=== PATIENT | female | born 1965 | race Caucasian/White ===

== ENCOUNTER 2016-07-26 07:20 | Emergency (ER) | payer OTHER ==
[2016-07-26 07:35] VITALS: BP 124/75
--- NOTE | 2016-07-26 08:26 | UC ---
Sourav Connor Janilya, scribed for Jeniffer West MD on 07/26/16 at 0806 . Skin Complaint HPI - HPI Summary HPI Summary: A 51 y/o female came in to [facility] presenting w/ a gradual onset of constant lump in the left nose for about 2 days. Pt states the pain and the pressure of the lump in the nose radiates to her left medial cheek, left forehead, and under her left eye. She reports the area is very tender to touch. Her condition has been progressively getting worse, and the severity is currently rated at 9/10. Cold/warm compresses did not bring any alleviation. Motrin relieved her Sx, but not significantly. Pt has never experienced these Sx before. Pt denies fever, chills, aches, n/v, CP, SOB, abd pain. No allergies to medicine. Pt is unaccompanied. - History of Current Complaint Chief Complaint: UCSkin Time Seen by Provider: 07/26/16 07:23 Stated Complaint: SORE IN NOSE Hx Obtained From: Patient Onset/Duration: Gradual Onset, Lasting Days, Still Present Skin Exposure Onset/Duration: Days Ago Timing: Constant Onset Severity: Moderate Current Severity: Moderate Pain Intensity: 9 Pain Scale Used: 0-10 Numeric Location: Face, Nose Aggravating: Nothing Alleviating: OTC Meds - mild relief from motrin Associated Signs & Symptoms: Negative: Nausea, Vomiting, Difficulty Breathing, Fever, Chills, Chest Pain, Abdominal Pain - Allergy/Home Medications Allergies/Adverse Reactions: Allergies Allergy/AdvReac Type Severity Reaction Status Date / Time Naproxen Allergy Intermediate Rash Verified 07/26/16 07:30 Review of Systems Constitutional: Negative Skin: Other - Tenderness of left side of face. Eyes: Negative ENT: Other - Lump in the left nose. Pain radiates to left side of face. Respiratory: Negative Cardiovascular: Negative Gastrointestinal: Negative Genitourinary: Negative Motor: Negative Neurovascular: Negative Musculoskeletal: Negative Neurological: Negative Psychological: Negative All Other Systems Reviewed And Are Negative: Yes PMH/Surg Hx/FS Hx/Imm Hx Previously Healthy: Yes Endocrine History Of: Denies: Diabetes Cardiovascular History Of: Denies: Hypertension, Pacemaker/ICD, Congestive Heart Failure Respiratory History Of: Reports: Asthma - No previous admissions GI/ History Of: Reports: Kidney Stones - WHEN 14YEARS OLD Denies: Renal Disease - Surgical History Surgical History: Yes Surgery Procedure, Year, and Place: TUBAL. RIGHT shoulder. Fatty tissue removedx2 - Family History Known Family History: Positive: Cardiac Disease - father, brother, mother - [place], Diabetes - Social History Alcohol Use: None Substance Use Type: None Smoking Status (MU): Former Smoker When Did the Patient Quit Smoking/Using Tobacco: 2003 - Immunization History Most Recent Influenza Vaccination: None Physical Exam Triage Information Reviewed: Yes Appearance: Well-Appearing Vital Signs: Initial Vital Signs Temp 98.1 F 07/26/16 07:31 Pulse 66 07/26/16 07:31 Resp 18 07/26/16 07:31 BP 124/75 07/26/16 07:31 Pulse Ox 96 07/26/16 07:31 Vital Signs Reviewed: Yes Eyes: Positive: Conjunctiva Inflamed ENT: Positive: Hearing grossly normal, Pharynx normal, TMs normal, Other: - Tender small pustule in left inferior nostril at orifice. No discharge.. Negative: Pharyngeal erythema, Nasal drainage, TM bulging, TM dull, TM red, Tonsillar exudate Dental Exam: Normal Neck: Positive: Supple, Nontender, No Lymphadenopathy Respiratory: Positive: Lungs clear, Normal breath sounds, No respiratory distress, No accessory muscle use Cardiovascular: Positive: RRR, No Murmur, Pulses Normal Abdomen Description: Positive: Nontender, Soft Musculoskeletal Exam: Normal Neurological Exam: Normal Psychological Exam: Normal Skin Exam: Normal Course/Dx - Differential Diagnoses - Skin Complaint Differential Diagnoses: Abscess, Cellulitis, Impetigo, MRSA - Diagnoses Provider Diagnoses: nasal folliculitis/abscess/cellulitis Discharge - Discharge Plan Condition: Stable Disposition: HOME Prescriptions: Mupirocin 2% OINT* [Bactroban 2 % Oint*] 1 applic TOPICAL TID #1 tube Sulfamethox/Trimethoprim DS* [Bactrim DS 800/160 TAB*] 1 tab PO BID #20 tab Patient Education Materials: Folliculitis (ED), Cellulitis (ED) Referrals: Adry Puri MD [Primary Care Provider] - 2 Days Additional Instructions: Take a probiotic while you are on the antibiotic. Continue with ibuprofen for the pain. Go to the ER if you symptoms worsen or not any better in 24-48 hrs. You may need IV antibiotics at that time. The documentation as recorded by the scribSourav mejias Janilya accurately reflects the service I personally performed and the decisions made by , Jeniffer West MD.
== END 2016-07-26 08:22 | disposition home or self-care (01) ==
LOC: UCEAST 07:20
DX: L73.8 Other specified follicular disorders (principal); J32.8 Other chronic sinusitis; J34.0 Abscess, furuncle and carbuncle of nose; J45.909 Unspecified asthma, uncomplicated; Z87.891 Personal history of nicotine dependence; Z88.6 Allergy status to analgesic agent
CPT/HCPCS: 99212; G0463

== ENCOUNTER 2016-07-27 13:49 | Emergency (ER) | payer OTHER ==
[2016-07-27 14:35] VITALS: BP 140/90
--- NOTE | 2016-07-27 14:36 | ED ---
Skin Complaint - HPI Summary HPI Summary: 51F presents with nasal lesion in left nares for 3 days. She states the pain has prevented her from sleeping. She states the pain radiates to her left cheek under her left eye and to her left ear. She denies any vesicular lesions or new lesions besides the one in her nose. She does not have a history of shingles. She denies anything coming from the lesions. She states the area is very tender to the touch. Warm compresses have been helping. She has been using topical mupirocin and bactrim and has taken them for two days. She has been taking ibuprofen without relief of her pain. - History of Current Complaint Chief Complaint: EDGeneral Time Seen by Provider: 07/27/16 14:02 Stated Complaint: FACIAL SWELLING,CELLULITUS Pain Intensity: 10 - Allergy/Home Medications Allergies/Adverse Reactions: Allergies Allergy/AdvReac Type Severity Reaction Status Date / Time Naproxen Allergy Intermediate Rash Verified 07/27/16 13:51 PMH/Surg Hx/FS Hx/Imm Hx Endocrine/Hematology History: Denies: Hx Diabetes, Hx Systemic Lupus Erythematosus Cardiovascular History: Denies: Hx Congestive Heart Failure, Hx Hypertension, Hx Pacemaker/ICD Respiratory History: Reports: Hx Asthma - No previous admissions, Hx Sleep Apnea GI History: Reports: Hx Gastroesophageal Reflux Disease - NEWLY History: Reports: Hx Kidney Stones - WHEN 14YEARS OLD Denies: Hx Dialysis, Hx Renal Disease Musculoskeletal History: Reports: Other Musculoskeletal History - POSSIBLE NECK PROBLEMS, GOUT Denies: Hx Rheumatoid Arthritis Sensory History: Reports: Hx Contacts or Glasses Denies: Hx Hearing Aid Opthamlomology History: Reports: Hx Contacts or Glasses Psychiatric History: Denies: Hx Panic Disorder - Cancer History Hx Chemotherapy: No - Surgical History Surgery Procedure, Year, and Place: TUBAL. RIGHT shoulder. Fatty tissue removedx2 Hx Anesthesia Reactions: No - Immunization History Date of Tetanus Vaccine: unknown Infectious Disease History: No Infectious Disease History: Denies: Traveled Outside the US in Last 30 Days - Family History Known Family History: Positive: Cardiac Disease - father, brother, mother - [place], Diabetes - Social History Alcohol Use: None Substance Use Type: Reports: None Hx Tobacco Use: Yes - quit 2002 Smoking Status (MU): Former Smoker Review of Systems Negative: Fever Positive: Other - lesion in left nares Negative: Chest Pain Negative: Shortness Of Breath All Other Systems Reviewed And Are Negative: Yes Physical Exam Triage Information Reviewed: Yes Vital Signs On Initial Exam: Initial Vitals Temp Pulse Resp BP Pulse Ox 97.5 F 77 18 150/75 99 07/27/16 13:51 07/27/16 13:51 07/27/16 13:51 07/27/16 13:51 07/27/16 13:51 Vital Signs Reviewed: Yes Appearance: Positive: Well-Appearing Skin: Positive: Warm, Dry Head/Face: Positive: Normal Head/Face Inspection Eyes: Positive: Normal, EOMI, AARON, Conjunctiva Clear, Other: - no erythema or edema around the eye ENT: Positive: Pharynx normal, TMs normal, Other - lesion present in left nares with no vesciular component or erythema, no palpable area of loculation felt, appears to be like folliculitis, tender to touch Neck: Positive: Supple, Nontender, No Lymphadenopathy Respiratory/Lung Sounds: Positive: Clear to Auscultation, Breath Sounds Present - Yadira Coma Scale Coma Scale Total: 15 Diagnostics - Vital Signs Vital Signs Temp Pulse Resp BP Pulse Ox 07/27/16 14:05 91 97 07/27/16 14:04 137/94 07/27/16 13:51 97.5 F 77 18 150/75 99 - Laboratory Lab Statement: Any lab studies that have been ordered have been reviewed, and results considered in the medical decision making process. Course/Dx - Course Course Of Treatment: 51F presents with lesion in left nares for 3 days, states feels like pimple in nose that wont pop, warm compresses make it better, has been using bactrim and mupirocin, states area has not gotten bigger but unable to deal with pain, no vescicular lesions noted, no evidence of preseptal cellulitis, lesions appears to be like a folliculitis, discussed do not see need for imaging but do not see any edema around area, discussed do not need iv antibiotics as does not appear infectious, told to continue antibiotics on currently, added on pain medication, told warning signs to return, patient understands and agrees with plan - Differential Diagnoses - Skin Complaint Differential Diagnoses: Abscess, Cellulitis, Other - folliculitis, shingles - Diagnoses Provider Diagnoses: Nasal lesion Discharge - Discharge Plan Condition: Good Disposition: HOME Prescriptions: traMADol TAB* [Ultram*] 50 mg PO Q8H PRN #12 tab MDD 3 PRN Reason: Pain Referrals: Adry Puri MD [Primary Care Provider] - Additional Instructions: Follow instructions of antibiotics given at Continue warm compresses on area Use ibuprofen every 6 hours, take narcotic every 8 hours as needed for pain Follow up with primary care physician if no improvement Return to ED if develop vesicular lesions, swelling around the eye, pain with eye movement, fever, or any new or worsening symptoms
== END 2016-07-27 14:44 | disposition home or self-care (01) ==
LOC: ED 13:49
DX: J34.89 Other specified disorders of nose and nasal sinuses (principal); Z87.891 Personal history of nicotine dependence
CPT/HCPCS: 99282

== ENCOUNTER 2016-07-28 00:06 | Emergency (ER) | payer OTHER ==
[2016-07-28 00:13] VITALS: BP 137/72
[2016-07-28] MEDS ORDERED: Ibuprofen TAB* 800 MG PO ONE (00:35)
--- NOTE | 2016-07-28 00:46 | ED ---
Briseida Connor Anna, scribed for Robert Parks MD on 07/28/16 at 0039 . Throat Pain/Nasal Congestion - HPI Summary HPI Summary: Patient is a 51 y/o female coming to [facility] presenting with constant left naris pain that began four days ago. The patient reports that she is unable to sleep because of the pain. She was seen in the ED a few hours ago and was prescribed Tramadol. She denies new symptoms. At 1999 last night, she took the Tramadol. She took Motrin at 1200 yesterday. - History of Current Complaint Chief Complaint: EDGeneral Time Seen by Provider: 07/28/16 00:30 Hx Obtained From: Patient Onset/Duration: Lasting Days, Still Present - Allergies/Home Medications Allergies/Adverse Reactions: Allergies Allergy/AdvReac Type Severity Reaction Status Date / Time Naproxen Allergy Intermediate Rash Verified 07/28/16 00:13 PMH/Surg Hx/FS Hx/Imm Hx Previously Healthy: Yes Endocrine/Hematology History: Denies: Hx Diabetes, Hx Systemic Lupus Erythematosus Cardiovascular History: Denies: Hx Congestive Heart Failure, Hx Hypertension, Hx Pacemaker/ICD Respiratory History: Reports: Hx Asthma - No previous admissions, Hx Sleep Apnea GI History: Reports: Hx Gastroesophageal Reflux Disease - NEWLY History: Reports: Hx Kidney Stones - WHEN 14YEARS OLD Denies: Hx Dialysis, Hx Renal Disease Musculoskeletal History: Reports: Other Musculoskeletal History - POSSIBLE NECK PROBLEMS, GOUT Denies: Hx Rheumatoid Arthritis Sensory History: Reports: Hx Contacts or Glasses Denies: Hx Hearing Aid Opthamlomology History: Reports: Hx Contacts or Glasses Psychiatric History: Denies: Hx Panic Disorder - Cancer History Hx Chemotherapy: No - Surgical History Surgery Procedure, Year, and Place: TUBAL. RIGHT shoulder. Fatty tissue removedx2 Hx Anesthesia Reactions: No - Immunization History Date of Tetanus Vaccine: unknown Infectious Disease History: No Infectious Disease History: Denies: Traveled Outside the US in Last 30 Days - Family History Known Family History: Positive: Cardiac Disease - father, brother, mother - [place], Diabetes - Social History Alcohol Use: None Substance Use Type: Reports: None Hx Tobacco Use: Yes - quit 2002 Smoking Status (MU): Former Smoker Review of Systems Constitutional: Negative ENT: Other - left naris pain All Other Systems Reviewed And Are Negative: Yes Physical Exam Triage Information Reviewed: Yes Vital Signs On Initial Exam: Initial Vitals Temp Pulse Resp BP Pulse Ox 98.1 F 69 16 137/72 97 07/28/16 00:09 07/28/16 00:09 07/28/16 00:09 07/28/16 00:09 07/28/16 00:09 Vital Signs Reviewed: Yes Appearance: Positive: Well-Appearing, No Pain Distress Skin: Positive: Warm Head/Face: Positive: Normal Head/Face Inspection Eyes: Positive: AARON ENT: Positive: Hearing grossly normal Neck: Positive: Supple Respiratory/Lung Sounds: Positive: Breath Sounds Present Neurological: Positive: Alert, Oriented to Person Place, Time Diagnostics - Vital Signs Vital Signs Temp Pulse Resp BP Pulse Ox 07/28/16 00:09 98.1 F 69 16 137/72 97 - Laboratory Lab Statement: Any lab studies that have been ordered have been reviewed, and results considered in the medical decision making process. Re-Evaluation - Re-Evaluation First Eval Comment: explained to pt needs to complete prior tx EENT Course/Dx - Course Assessment/Plan: Patient is a 51 y/o female coming to [facility] presenting with constant left nare pain that began four days ago. The patient reports that she is unable to sleep because of the pain. She was seen in the ED a few hours ago and was prescribed Tramadol. She denies new symptoms. At 1999 last night, she took the Tramadol. She took Motrin at 1200 yesterday. Patient was given Motrin in the ED and told to continue taking the Tramadol as prescribed. She was discharged home. - Diagnoses Provider Diagnoses: URI (upper respiratory infection) Discharge - Discharge Plan Condition: Stable Disposition: HOME Patient Education Materials: Tramadol (By mouth) Referrals: Adry Puri MD [Primary Care Provider] - Additional Instructions: Take Tramadol as was prescribed yesterday and take Motrin as directed. Return to the emergency department for changing or worsening symptoms. The documentation as recorded by the Briseida hui Anna accurately reflects the service I personally performed and the decisions made by , Robert Parks MD.
== END 2016-07-28 00:48 | disposition home or self-care (01) ==
LOC: ED 00:06
DX: J06.9 Acute upper respiratory infection, unspecified (principal); Z87.891 Personal history of nicotine dependence
CPT/HCPCS: 99281; A9270-GY

== ENCOUNTER 2016-11-05 00:34 | Emergency (ER) | payer OTHER ==
[2016-11-05] MEDS ORDERED: Ondansetron INJ* 2 MG/ML VIAL IV ONE (00:54)
[2016-11-05] MEDS ORDERED: NS 0.9% 1000 ML* 1,000 ML IV SCH (01:00)
[2016-11-05 01:10] LABS: Hematocrit 37 % (35-47); Hemoglobin 12.1 g/dl (12.0-16.0); Mean Corpuscular HGB Conc 32 g/dl (31-36); Mean Corpuscular Hemoglobin 29 pg (27-31); Mean Corpuscular Volume 90 fL (80-97); Mean Platelet Volume 8 um3 (7.4-10.4); Red Blood Count 4.16 10^6/ul (4.0-5.4); Red Cell Distribution Width 14 % (10.5-15); White Blood Count 13.3 10^3/ul (3.5-10.8)
[2016-11-05 01:22] LABS: ALT 21 U/L (7-52); Albumin 3.7 g/dL (3.2-5.2); Alkaline Phosphatase 76 U/L (34-104); Blood Urea Nitrogen 15 mg/dL (6-24); C Reactive Protein 7.92 mg/L (< 5.00); CO2 Carbon Dioxide 25 mmol/L (22-32); Calcium 9.2 mg/dL (8.6-10.3); Chloride 102 mmol/L (101-111); EGFR African American 135.5 (>60); EGFR Non-African American 105.4 (>60); Globulin 3.2 g/dL (2-4); Glucose 140 mg/dL (70-100); Lipase 25 U/L (11.0-82.0); Sodium 133 mmol/L (133-145); Total Protein 6.9 g/dL (6.4-8.9)
[2016-11-05 01:23] LABS: Troponin I 0.01 ng/mL (<0.04)
[2016-11-05 01:26] LABS: Anion Gap 6 mmol/L (2-11)
[2016-11-05 01:56] LABS: Magnesium 1.9 mg/dL (1.9-2.7)
--- NOTE | 2016-11-05 01:58 | ED ---
Malocm Connor Benjamin, scribed for Robert Parks MD on 11/05/16 at 0147 . Abdominal Pain/Female - HPI Summary HPI Summary: 51yo female c/o epigastric pain, describing it has gassy. Pt states that pain radiates to left back and left ribs. Pt also reports throat pain when swallowing. Denies any traumatic injuries. Pt was in a car ride for 4 hours 2 days ago. Associated symptoms include nausea and increased urgency of BM. Pt's son recently , and pt states that she is under lots of stress lately. - History of Current Complaint Chief Complaint: EDAbdPain Stated Complaint: GENERAL ILLNESS Time Seen by Provider: 11/05/16 00:50 Hx Obtained From: Patient Onset/Duration: Gradual Onset, Still Present Timing: Constant Severity Initially: Moderate Severity Currently: Moderate Pain Intensity: 9 Pain Scale Used: 0-10 Numeric Location: Discrete At: LUQ, Epigastric Radiates: Yes Radiates to: Back - left Character: Other: - gassy Aggravating Factor(s): Nothing Alleviating Factor(s): Nothing Associated Signs and Symptoms: Positive: Nausea Allergies/Adverse Reactions: Allergies Allergy/AdvReac Type Severity Reaction Status Date / Time Naproxen Allergy Intermediate Rash Verified 07/28/16 00:13 PMH/Surg Hx/FS Hx/Imm Hx Endocrine/Hematology History: Denies: Hx Diabetes, Hx Systemic Lupus Erythematosus Cardiovascular History: Denies: Hx Congestive Heart Failure, Hx Hypertension, Hx Pacemaker/ICD Respiratory History: Reports: Hx Asthma - No previous admissions, Hx Sleep Apnea GI History: Reports: Hx Gastroesophageal Reflux Disease - NEWLY History: Reports: Hx Kidney Stones - WHEN 14YEARS OLD Denies: Hx Dialysis, Hx Renal Disease Musculoskeletal History: Reports: Other Musculoskeletal History - POSSIBLE NECK PROBLEMS, GOUT Denies: Hx Rheumatoid Arthritis Sensory History: Reports: Hx Contacts or Glasses Denies: Hx Hearing Aid Opthamlomology History: Reports: Hx Contacts or Glasses Psychiatric History: Denies: Hx Panic Disorder - Cancer History Hx Chemotherapy: No - Surgical History Surgery Procedure, Year, and Place: TUBAL. RIGHT shoulder. Fatty tissue removed x2 around same side back of shoulder. 2-4 yrs ago, also buttock-back of leg Hx Anesthesia Reactions: No - Immunization History Date of Tetanus Vaccine: unknown Infectious Disease History: No Infectious Disease History: Denies: Traveled Outside the US in Last 30 Days - Family History Known Family History: Positive: Cardiac Disease - father, brother, mother - [place], Diabetes - Social History Occupation: Employed Full-time Lives: With Family Alcohol Use: None Substance Use Type: Reports: None Hx Tobacco Use: Yes - quit 2002 Smoking Status (MU): Former Smoker Review of Systems Constitutional: Negative Eyes: Negative ENT: Negative Cardiovascular: Negative Respiratory: Negative Positive: Abdominal Pain, Nausea Genitourinary: Negative Musculoskeletal: Negative Skin: Negative Neurological: Negative Positive: Other - stressed All Other Systems Reviewed And Are Negative: Yes Physical Exam Triage Information Reviewed: Yes Vital Signs On Initial Exam: Initial Vitals Temp Pulse Resp BP Pulse Ox 97.2 F 65 20 140/78 96 11/05/16 00:37 11/05/16 00:37 11/05/16 00:37 11/05/16 00:37 11/05/16 00:37 Vital Signs Reviewed: Yes Appearance: Positive: Well-Appearing, No Pain Distress Skin: Positive: Warm Head/Face: Positive: Normal Head/Face Inspection Eyes: Positive: AARON ENT: Positive: Hearing grossly normal Neck: Positive: Supple Respiratory/Lung Sounds: Positive: Clear to Auscultation, Breath Sounds Present Cardiovascular: Positive: RRR Abdomen Description: Positive: Nontender, Soft Bowel Sounds: Positive: Present Musculoskeletal: Positive: Strength/ROM Intact Neurological: Positive: Sensory/Motor Intact, Alert, Oriented to Person Place, Time, Normal Gait Psychiatric: Positive: Affect/Mood Appropriate - Yadira Coma Scale Coma Scale Total: 15 Diagnostics - Vital Signs Vital Signs Temp Pulse Resp BP Pulse Ox 11/05/16 01:18 59 16 138/69 11/05/16 01:01 97.2 F 84 16 138/69 99 11/05/16 00:37 97.2 F 65 20 140/78 96 - Laboratory Lab Results: Lab Results 11/05/16 11/05/16 Range/Units 00:59 00:59 WBC 13.3 H (3.5-10.8) 10^3/ul RBC 4.16 (4.0-5.4) 10^6/ul Hgb 12.1 (12.0-16.0) g/dl Hct 37 (35-47) % MCV 90 (80-97) fL MCH 29 (27-31) pg MCHC 32 (31-36) g/dl RDW 14 (10.5-15) % Plt Count 406 (150-450) 10^3/ul MPV 8 (7.4-10.4) um3 Neut % (Auto) 62.4 (38-83) % Lymph % (Auto) 27.7 (25-47) % [place] % (Auto) 7.2 (1-9) % Eos % (Auto) 1.3 (0-6) % Baso % (Auto) 1.4 (0-2) % Absolute Neuts (auto) 8.3 H (1.5-7.7) 10^3/ul Absolute Lymphs (auto) 3.7 (1.0-4.8) 10^3/ul Absolute Monos (auto) 1.0 H (0-0.8) 10^3/ul Absolute Eos (auto) 0.2 (0-0.6) 10^3/ul Absolute Basos (auto) 0.2 (0-0.2) 10^3/ul Absolute Nucleated RBC 0.01 10^3/ul Nucleated RBC % 0 Sodium 133 (133-145) mmol/L Potassium TNP Chloride 102 (101-111) mmol/L Carbon Dioxide 25 (22-32) mmol/L Anion Gap 6 (2-11) mmol/L BUN 15 (6-24) mg/dL Creatinine 0.60 (0.51-0.95) mg/dL Est GFR ( Amer) 135.5 (>60) Est GFR (Non-Af Amer) 105.4 (>60) BUN/Creatinine Ratio 25.0 H (8-20) Glucose 140 H (70-100) mg/dL Calcium 9.2 (8.6-10.3) mg/dL Magnesium TNP Total Bilirubin 0.50 (0.2-1.0) mg/dL AST TNP ALT 21 (7-52) U/L Alkaline Phosphatase 76 (34-104) U/L Troponin I 0.01 (<0.04) ng/mL C-Reactive Protein 7.92 H (< 5.00) mg/L Total Protein 6.9 (6.4-8.9) g/dL Albumin 3.7 (3.2-5.2) g/dL Globulin 3.2 (2-4) g/dL Albumin/Globulin Ratio 1.2 (1-3) Lipase 25 (11.0-82.0) U/L Result Diagrams: 11/05/16 00:59 11/05/16 01:31 Lab Statement: Any lab studies that have been ordered have been reviewed, and results considered in the medical decision making process. Re-Evaluation - Re-Evaluation First Eval Change: Improved Abdominal Pain Fem Course/Dx - Diagnoses Provider Diagnoses: Abdominal pain Discharge - Discharge Plan Condition: Fair Disposition: HOME Patient Education Materials: Abdominal Pain (ED) Referrals: Adry Puri MD [Primary Care Provider] - The documentation as recorded by the Malcom hui Benjamin accurately reflects the service I personally performed and the decisions made by me, Robert Parks MD.
[2016-11-05 02:19] VITALS: BP 118/57
== END 2016-11-05 02:17 | disposition home or self-care (01) ==
LOC: ED 00:34
DX: R10.12 Left upper quadrant pain (principal); R10.13 Epigastric pain; R11.0 Nausea; Z87.891 Personal history of nicotine dependence
CPT/HCPCS: 36415; 80053; 83690; 83735; 84484; 85025; 86140; 96374; 96375; 99283; J2405

== ENCOUNTER 2016-12-31 07:30 | Day surgery (SDC) | payer OTHER ==
[~2016-12-31 07:30] MED LIST: Buffered Lidocaine 0.9% SYRIN* 5 ML/SYR SYRINGE INTRADERM ONE; Dexamethasone IV* 4 MG/ML 1 ML (4 MG) IV SLOW PU ONE; Famotidine IV* 10 MG/ML 2 ML (20 mg) IV ONE; Levalbuterol 0.63MG/3ML NEB INH ONE
[2016-12-31] MEDS ORDERED: Dexamethasone IV* 4 MG/ML 1 ML (4 MG) ONE (08:14)
[2016-12-31] MEDS ORDERED: Levalbuterol 1.25MG/0.5ML NEB ONE (08:15)
[2016-12-31] MEDS ORDERED: Famotidine IV* 10 MG/ML 2 ML (20 mg) ONE (08:15)
[2016-12-31] MEDS ORDERED: Ketorolac INJ* 30 MG/ML 1 ML VIAL ONE (08:30)
[2016-12-31] MEDS ORDERED: Propofol* 10 MG/ML 20 ML BTL IV PUSH ONE (08:30)
[2016-12-31] MEDS ORDERED: fentaNYL* 50 MCG/ML 5 ML VIAL (250 MCG VIAL) ONE (08:30)
[2016-12-31] MEDS ORDERED: Ondansetron INJ* 2 MG/ML VIAL ONE (08:30)
[2016-12-31] MEDS ORDERED: Midazolam* 1 MG/ML 5 ML VIAL (5 MG) ONE (08:30)
[2016-12-31] MEDS ORDERED: Atracurium* 10 MG/ML 10 ML VIAL ONE (08:30)
[2016-12-31] MEDS ORDERED: Lidocaine 2% PF * 5 ML VIAL ONE (08:30)
[2016-12-31] MEDS ORDERED: Bupivacaine 0.25% SDV* 30 ML ONE (08:40)
[2016-12-31] MEDS ORDERED: Scopolamine 1.5 mg* PATCH TRANSDERM PRN (08:53)
[2016-12-31] MEDS ORDERED: DiMENhydriNATE IV* 50 MG/ML VIAL IV PUSH PRN (08:53)
[2016-12-31] MEDS ORDERED: fentaNYL* 50 MCG/ML 2 ML VIAL (100 MCG VIAL) IV PRN (08:53)
[2016-12-31] MEDS ORDERED: HYDROmorphone* 1 MG/ML 1 ML SYR IV PRN (08:53)
[2016-12-31] MEDS ORDERED: Ondansetron INJ* 2 MG/ML VIAL IV PRN (08:53)
[2016-12-31] MEDS ORDERED: Succinylcholine* 20 MG/ML 10 ML VIAL ONE (09:02)
[2016-12-31] MEDS ORDERED: Phenylephrine IV* 40 MCG/ML 10 ML SYRINGE ONE (09:23)
[2016-12-31] MEDS ORDERED: EPHEDrine (Pressors)* 50 MG/ML VIAL ONE (09:23)
[2016-12-31 11:16] VITALS: BP 117/64
--- NOTE | 2016-12-31 17:11 | OP ---
DATE OF OPERATION: 12/31/16 [facility] DATE OF : 65 SURGEON: Isidro Rouse MD IRRIGATION WORKER: REINA Mayes. An health care assistant was needed for the entirety of the case to help with positioning, retraction, and utilized throughout all portions. ANESTHESIOLOGIST: Dr. Brothers. ANESTHESIA: General anesthesia. PRE-OP DIAGNOSIS: Right shoulder acromioclavicular joint arthritis. POST-OP DIAGNOSIS: Right shoulder acromioclavicular joint arthritis. OPERATIVE PROCEDURE: Right shoulder open distal clavicle excision. COMPLICATIONS: None. ESTIMATED BLOOD LOSS: Minimal. INDICATIONS: Samantha Buchanan is a 51-year-old female who had right shoulder pain. She had a previous surgery, which was a rotator cuff repair, distal clavicle excision, subpectoral biceps tenodesis. She still had persistent symptoms about the AC joint in a small area superiorly of a bony piece that was impinging. At this point after discussion, we talked about an open distal clavicle excision. She has failed conservative management including an injection therapy and has elected to proceed with surgery. Risks and benefits were discussed at length including, but not limited to bleeding, infection, damage to nerves, vessels, surrounding structures, wound nonhealing, persistent pain, need for further surgery, risks of anesthesia, scarring, incomplete relief of symptoms as well as risk of DVT. She has elected to proceed. She also has a recent history of poison bob, but it was not on the surgical wound, although not far from it, we did drape it out. DESCRIPTION OF PROCEDURE: The patient was greeted in the preoperative area by the attending surgeon. Correct extremity was marked and consent was confirmed. The patient was brought back to the operating suite, where she was placed in supine position on the operating table. She then underwent general anesthesia and endotracheal intubation after which the patient was positioned in [facility] chair. All bony prominences were padded. Pillows were placed under the knee as well as SCDs. The right arm was then prepped and draped in the usual sterile fashion, taking care to avoid any areas where there was poison bob contact and skin excoriation. The right shoulder was prepped and draped with chlorhexidine soap, scrub, and alcohol wipe and a final prep of ChloraPrep. After appropriate surgical pause indicating site, side, procedure, and administration of antibiotics, a Saber incision was made incorporating the previous anterior portal. The soft tissues were carefully dissected. Hemostasis was obtained at all times using electrocautery device. The AC joint was identified and longitudinal split-in line with the fibers was then made. The fascia was then carefully peeled off the distal clavicle to expose approximately 1 cm of the bone. This was then sharply excised. The undersurface had evidence of being previously removed and this was done arthroscopically. There was just a superior overhanging edge. Once the bone was removed, the rasp was used to soften the edges. I placed my finger in the space and cross body adducted her shoulder as well as flexor shoulder and there was no evidence of impingement. The wounds were copiously irrigated with sterile saline. The fascial layer and capsule were closed with 0 Vicryl in interrupted fashion. The skin was closed with 2-0 Vicryl and 3-0 nylon. Sterile dressings were applied. Her wound was injected with 0.25% Marcaine plain. She was awoken from anesthesia, Cryo/Cuff was placed, she was transferred to the PACU in stable condition. POSTOPERATIVE PLAN: She will be range of motion as tolerated. No specific weightbearing. She will be discharged with pain medication, antibiotics. DVT prophylaxis was considered, but deferred due to no previous personal or family history. I will see the patient back in 10-14 days. [id number]/[facility] #: [id number] MANI
[2017-01-03] MEDS ORDERED: Scopolomine PATCH Remove* 1 NOTE MISC PATCH OFF ONE (08:54)
== END 2016-12-31 11:14 | disposition home or self-care (01) ==
LOC: OR 07:30
PROVIDERS: ATTEND Orthopaedic Surgery
DX: M19.011 Primary osteoarthritis, right shoulder (principal); M75.21 Bicipital tendinitis, right shoulder; M25.541 Pain in joints of right hand; J45.909 Unspecified asthma, uncomplicated; G47.33 Obstructive sleep apnea (adult) (pediatric); Z87.891 Personal history of nicotine dependence
CPT/HCPCS: 88304; 88311; A9270-GY; J0330; J1100; J1885; J2250; J2405; J2704; J3010

== ENCOUNTER 2017-04-19 04:44 | Emergency (ER) | payer SELFPAY ==
[2017-04-19] MEDS ORDERED: Albuterol/Ipratropium NEB.SOL* Albuterol 2.5 MG/Ipratropium 0.5 MG 3 ML INH ONE (04:56)
[2017-04-19] MEDS ORDERED: predniSONE TAB* 20 MG PO ONE (04:59)
[2017-04-19 05:54] LABS: Hematocrit 37 % (35-47); Hemoglobin 12.2 g/dl (12.0-16.0); Mean Corpuscular HGB Conc 33 g/dl (31-36); Mean Corpuscular Hemoglobin 29 pg (27-31); Mean Corpuscular Volume 89 fL (80-97); Mean Platelet Volume 8 um3 (7.4-10.4); Red Blood Count 4.16 10^6/ul (4.0-5.4); Red Cell Distribution Width 13 % (10.5-15); White Blood Count 10.8 10^3/ul (3.5-10.8)
[2017-04-19 06:09] LABS: Albumin 3.8 g/dL (3.2-5.2); BUN/Creatinine Ratio 20.6 (8-20); Calcium 9.5 mg/dL (8.6-10.3); EGFR African American 128.1 (>60); EGFR Non-African American 99.6 (>60); Globulin 3.1 g/dL (2-4); Potassium 3.1 mmol/L (3.5-5.0); Total Bilirubin 0.3 mg/dL (0.2-1.0); Total Protein 6.9 g/dL (6.4-8.9)
[2017-04-19 06:10] LABS: Troponin I 0.01 ng/mL (<0.04)
[2017-04-19] MEDS ORDERED: Azithromycin TAB* 250 MG PO ONE (06:28)
[2017-04-19] MEDS ORDERED: Potassium Chlor TAB* 20 MEQ TAB.ER PO ONE (06:28)
--- NOTE | 2017-04-19 06:51 | ED ---
Danii Connor Thomas, scribed for Rolando Shah on 04/19/17 at 0505 . Respiratory - HPI Summary HPI Summary: A 51 y/o F presents to the ED with c/o chest tightness that began 3 days ago post exposure to cats. She has been self-treating with Dayquil and Nyquil but feels no relief to her symptoms. Symptoms include a mildly productive cough, generalized illness, and chills. Pt denies abd pain, fever, and sore throat. PMHx includes asthma. - History of Current Complaint Chief Complaint: EDUpperRespComplaint Stated Complaint: Shortness of breath Time Seen by Provider: 04/19/17 04:49 Hx Obtained From: Patient Onset/Duration: Lasting Days - 3 days ago, Still Present Timing: Constant Pain Intensity: 7 Character: Cough (Productive) - mucus Aggravating Factor(s): Allergens - cats Alleviating Factor(s): Nothing Associated Signs and Symptoms: Chest Pain - tightness, Chills - Allergy/Home Medications Allergies/Adverse Reactions: Allergies Allergy/AdvReac Type Severity Reaction Status Date / Time Naproxen Allergy Intermediate Rash Verified 04/19/17 05:10 Acetaminophen [From Percocet] Allergy Unknown Verified 04/19/17 05:10 Reaction Details Oxycodone [From Percocet] Allergy Unknown Verified 04/19/17 05:10 Reaction Details SEAFOOD Allergy Severe Rash And Uncoded 04/19/17 05:10 Itching TRAMADOL Allergy Severe Altered Uncoded 04/19/17 05:10 Mental Status ENVIRONMENTAL Allergy Intermediate Eyes Uncoded 04/19/17 05:10 Itchy/Swollen/Red/Watery LATEX Allergy Intermediate Rash And Uncoded 04/19/17 05:10 Itching PMH/Surg Hx/FS Hx/Imm Hx Previously Healthy: No Endocrine/Hematology History: Denies: Hx Diabetes, Hx Systemic Lupus Erythematosus Cardiovascular History: Denies: Hx Congestive Heart Failure, Hx Hypertension, Hx Pacemaker/ICD Respiratory History: Reports: Hx Asthma - USES INHALER, Hx Sleep Apnea - DX 2016 , Other Respiratory Problems/Disorders - HAS ALLERGY SHOTS BY DR BRITO Q WEEK ON MONDAYS GI History: Reports: Hx Gastroesophageal Reflux Disease - R/T FOOD INTAKE, Hx Ulcer - 1999' HEALED WELL History: Reports: Hx Kidney Stones - WHEN 14YEARS OLD Denies: Hx Dialysis, Hx Renal Disease Musculoskeletal History: Reports: Other Musculoskeletal History - POSSIBLE NECK PROBLEMS, GOUT Denies: Hx Arthritis, Hx Rheumatoid Arthritis Sensory History: Reports: Hx Contacts or Glasses - GLASSES Denies: Hx Hearing Aid Opthamlomology History: Reports: Hx Contacts or Glasses - GLASSES Neurological History: Reports: Hx Migraine - HX OF OCCASIONAL LAST EPISODE 1 YR AGO Psychiatric History: Denies: Hx Panic Disorder - Cancer History Hx Chemotherapy: No - Surgical History Surgery Procedure, Year, and Place: TUBAL LIGATION 1987. RIGHT shoulder REPAIR 02/2016. Fatty tissue removed x2 around same side back of shoulder, 02/2016 also buttock-back of leg Hx Anesthesia Reactions: No - SEVERE N/V - Immunization History Date of Tetanus Vaccine: unknown Infectious Disease History: No Infectious Disease History: Denies: Traveled Outside the [place] in Last 30 Days - Family History Known Family History: Positive: Cardiac Disease - father, brother, mother - [place], Diabetes - Social History Alcohol Use: None Substance Use Type: Reports: None Hx Tobacco Use: Yes - quit 2002 Smoking Status (MU): Former Smoker Review of Systems Positive: Chills, Other - Generalized illness. Negative: Fever Negative: Sore Throat Positive: Cough Negative: Abdominal Pain All Other Systems Reviewed And Are Negative: Yes Physical Exam - Summary Physical Exam Summary: Appearance: Well appearing, no pain distress Skin: warm, dry, reflects adequate perfusion Head/face: normal Eyes: EOMI, AARON ENT: normal Neck: supple, non-tender Respiratory: CTA, breath sounds present Cardiovascular: RRR, pulses symmetrical Abdomen: non-tender, soft Bowel: present Musculoskeletal: normal, strength/ROM intact Neuro: normal, sensory motor intact, A&Ox3 Triage Information Reviewed: Yes Vital Signs On Initial Exam: Initial Vitals Temp Pulse Resp BP Pulse Ox 97.5 F 86 18 146/79 98 04/19/17 04:47 04/19/17 04:47 04/19/17 04:47 04/19/17 04:47 04/19/17 04:47 Vital Signs Reviewed: Yes Diagnostics - Vital Signs Vital Signs Temp Pulse Resp BP Pulse Ox 04/19/17 04:47 97.5 F 86 18 146/79 98 - Laboratory Lab Results: Lab Results 04/19/17 04/19/17 04/19/17 Range/Units 05:23 05:35 05:35 WBC 10.8 (3.5-10.8) 10^3/ul RBC 4.16 (4.0-5.4) 10^6/ul Hgb 12.2 (12.0-16.0) g/dl Hct 37 (35-47) % MCV 89 (80-97) fL MCH 29 (27-31) pg MCHC 33 (31-36) g/dl RDW 13 (10.5-15) % Plt Count 362 (150-450) 10^3/ul MPV 8 (7.4-10.4) um3 Neut % (Auto) 46.7 (38-83) % Lymph % (Auto) 40.5 (25-47) % Daniels % (Auto) 9.0 (1-9) % Eos % (Auto) 2.9 (0-6) % Baso % (Auto) 0.9 (0-2) % Absolute Neuts (auto) 5.1 (1.5-7.7) 10^3/ul Absolute Lymphs (auto) 4.4 (1.0-4.8) 10^3/ul Absolute Monos (auto) 1.0 H (0-0.8) 10^3/ul Absolute Eos (auto) 0.3 (0-0.6) 10^3/ul Absolute Basos (auto) 0.1 (0-0.2) 10^3/ul Absolute Nucleated RBC 0.01 10^3/ul Nucleated RBC % 0.1 INR (Anticoag Therapy) (0.89-1.11) APTT (26.0-36.3) seconds Sodium (133-145) mmol/L Potassium (3.5-5.0) mmol/L Chloride (101-111) mmol/L Carbon Dioxide (22-32) mmol/L Anion Gap (2-11) mmol/L BUN (6-24) mg/dL Creatinine (0.51-0.95) mg/dL Est GFR ( Amer) (>60) Est GFR (Non-Af Amer) (>60) BUN/Creatinine Ratio (8-20) Glucose (70-100) mg/dL Calcium (8.6-10.3) mg/dL Total Bilirubin (0.2-1.0) mg/dL AST (13-39) U/L ALT (7-52) U/L Alkaline Phosphatase (34-104) U/L Troponin I (<0.04) ng/mL B-Natriuretic Peptide 17 ( - 100) pg/mL Total Protein (6.4-8.9) g/dL Albumin (3.2-5.2) g/dL Globulin (2-4) g/dL Albumin/Globulin Ratio (1-3) Influenza A (Rapid) Negative (Negative) Influenza B (Rapid) Negative (Negative) 04/19/17 04/19/17 Range/Units 05:35 05:35 WBC (3.5-10.8) 10^3/ul RBC (4.0-5.4) 10^6/ul Hgb (12.0-16.0) g/dl Hct (35-47) % MCV (80-97) fL MCH (27-31) pg MCHC (31-36) g/dl RDW (10.5-15) % Plt Count (150-450) 10^3/ul MPV (7.4-10.4) um3 Neut % (Auto) (38-83) % Lymph % (Auto) (25-47) % Daniels % (Auto) (1-9) % Eos % (Auto) (0-6) % Baso % (Auto) (0-2) % Absolute Neuts (auto) (1.5-7.7) 10^3/ul Absolute Lymphs (auto) (1.0-4.8) 10^3/ul Absolute Monos (auto) (0-0.8) 10^3/ul Absolute Eos (auto) (0-0.6) 10^3/ul Absolute Basos (auto) (0-0.2) 10^3/ul Absolute Nucleated RBC 10^3/ul Nucleated RBC % INR (Anticoag Therapy) 0.90 (0.89-1.11) APTT 32.3 (26.0-36.3) seconds Sodium 135 (133-145) mmol/L Potassium 3.1 L (3.5-5.0) mmol/L Chloride 101 (101-111) mmol/L Carbon Dioxide 27 (22-32) mmol/L Anion Gap 7 (2-11) mmol/L BUN 13 (6-24) mg/dL Creatinine 0.63 (0.51-0.95) mg/dL Est GFR ( Amer) 128.1 (>60) Est GFR (Non-Af Amer) 99.6 (>60) BUN/Creatinine Ratio 20.6 H (8-20) Glucose 126 H (70-100) mg/dL Calcium 9.5 (8.6-10.3) mg/dL Total Bilirubin 0.30 (0.2-1.0) mg/dL AST 19 (13-39) U/L ALT 18 (7-52) U/L Alkaline Phosphatase 99 (34-104) U/L Troponin I 0.01 (<0.04) ng/mL B-Natriuretic Peptide ( - 100) pg/mL Total Protein 6.9 (6.4-8.9) g/dL Albumin 3.8 (3.2-5.2) g/dL Globulin 3.1 (2-4) g/dL Albumin/Globulin Ratio 1.2 (1-3) Influenza A (Rapid) (Negative) Influenza B (Rapid) (Negative) Result Diagrams: 04/19/17 05:35 04/19/17 05:35 Lab Statement: Any lab studies that have been ordered have been reviewed, and results considered in the medical decision making process. - Radiology CXR Xray Interpretation: No Acute Changes - Negative for acute disease Radiology Interpretation Completed By: ED Physician - EKG 0500 EKG Rhythm: Sinus Rhythm EKG Interpretation: No acute changes Disposition - Course Assessment/Plan: A 51 y/o F presents to the ED with c/o chest tightness that began 3 days ago as well as mildly productive cough, generalized illness, and chills. Labs, EKG, and CXR were obtained. Patient is diagnosed with asthma exacerbation and bronchitis. Bronchitis could be due to Mycoplasma, so antibiotics were prescribed. Patient will be discharged home with follow up by primary care. - Differential Dx - Cardiopulmonary Differential Diagnoses - Cardiopulmonary: Asthma, Bronchitis, CHF - Diagnoses Provider Diagnoses: Asthma exacerbation, Bronchitis Discharge - Discharge Plan Condition: Stable Disposition: HOME Prescriptions: Azithromycin TAB* [Zithromax TAB (Z-FRANKLIN) 250 mg #6 tabs] 250 mg PO DAILY #4 tab Methylprednisolone [Medrol Dosepak 4 MG*] 0 mg PO .SEE FRANKLIN INSTRUCTION #1 tab Patient Education Materials: Asthma (ED), Acute Bronchitis (ED) Referrals: Adry Puri MD [Primary Care Provider] - 5 Days Additional Instructions: Follow up with your primary care provider within a week. Return to the emergency department for any new or worsening symptoms. The documentation as recorded by the Danii hui Thomas accurately reflects the service I personally performed and the decisions made by , Rolando Shah.
[2017-04-19 07:07] VITALS: BP 118/59
--- NOTE | 2017-04-19 08:24 | RAD ---
INDICATION: Shortness of breath. COMPARISON: Comparison is made with a prior chest x-ray study from July 31, 2015. TECHNIQUE: A portable view of the chest was obtained. FINDINGS: Cardiac and mediastinal contours appear to be within normal limits. The lungs are underinflated and clear. No pleural effusion is seen. IMPRESSION: NO EVIDENCE FOR ACUTE DISEASE.
== END 2017-04-19 07:21 | disposition home or self-care (01) ==
LOC: ED 04:44
DX: J45.901 Unspecified asthma with (acute) exacerbation (principal); Z87.891 Personal history of nicotine dependence; G47.30 Sleep apnea, unspecified; K21.9 Gastro-esophageal reflux disease without esophagitis
CPT/HCPCS: 36415; 71010; 80053; 83880; 84484; 85025; 85610; 85730; 87502; 93005; 94640; 99282; A9270-GY; J7512

== ENCOUNTER → 2017-05-27 11:22 | Emergency (ER) | payer SELFPAY ==
[2017-05-27 11:29] VITALS: BP 132/74
== END | disposition left against medical advice (07) ==
LOC: ED 11:22
DX: M79.606 Pain in leg, unspecified (principal); Z53.21 Procedure and treatment not carried out due to patient leaving prior to being seen by health care provider

== ENCOUNTER 2017-07-27 01:43 | Emergency (ER) | payer OTHER ==
--- OUTSIDE RECORDS SUMMARY | 2017-07-27 01:59 | XMS REPORT ---
:1965 External Reference #:[id number] Author Organization [facility] Address [address] [address] Phone [phone] Care Team Providers Name Role Phone Adry Puri MD Primary Care Physician Unavailable Payers Type Date Identification Numbers Payment Provider Subscriber Commercial Effective: Policy Number: Femi Avila 2017 [id number] Group Name: [id number] [address] PayID: [id number] [place] [address] Medigap Part B Expires: 2017 Policy Number: [id number] Medicaid Rose Marie Avila Group Name: 1 1 [address] PayID: [id number] [place] [address] Problems Date Description Provider Status Onset: 11/06/2015 Disturbance in sleep behavior Kaya Stringer MD Active Onset: 11/06/2015 Obesity Kaya Stringer MD Active Onset: 01/03/2016 Obstructive sleep apnea syndrome Kaya Stringer MD Active Onset: 01/31/2016 Neck pain Isidro Rouse MD Active Onset: 01/31/2016 Brachial neuritis Isidro Rouse MD Active Onset: 01/31/2016 Localized, 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 Onset: 01/31/2016 Sprain of shoulder and upper arm Isidro Rouse MD Active Onset: 01/31/2016 Injury of shoulder region Isidro Rouse MD Active Onset: 06/10/2016 Localized, 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 Onset: 06/10/2016 Bicipital tenosynovitis Isidro Rouse MD Active Onset: 12/26/2016 Joint pain in right hand Isidro Rouse MD Active Onset: 06/12/2017 Tendon contracture Jeff Kennedy MD Active Onset: 06/12/2017 Plantar fascial fibromatosis Jeff Kennedy MD Active Family History Date Family Member(s) Problem(s) Comments Father DM , from heart attack at age 69 Mother Heart issues ; angina - alive at age 75 Siblings 1 Brother at age 46 ; HTN Social History Type Date Description Comments Marital Status Lives With Daughter Occupation Currently Working Cigarette Use Quit 13 Years Ago as of 10/2015 ETOH Use Denies alcohol use Smoking Patient is a former smoker 3PPD for 10 years Recreational Drug Use Denies Drug Use Smoking Heavy tobacco smoker (more than 10 cigarettes/day) Daily Caffeine Sweet tea Exercise Type/Frequency Exercises sporadically Allergies, Adverse Reactions, Alerts Date Description Reaction Status Severity Comments 11/06/2015 Naproxen active Medications Medication Date Status Form Strength Qnty SIG Indications Ordering Provider Ibuprofen 07/06 Active Tablets 800mg 90tab 1 tab by s mouth Rush, every 8 M.D. hours as needed for pain Ibuprofen 04/14 Active Tablets 800mg 90tab 1 by mouth s three Andrew, times a M.D. day as needed Ventolin HFA 11/04 Active Aerosol 108(90Bas 2 puffs by e) mouth four mcg/Act times a day as needed Dulera 11/04 Active Aerosol 200-5mcg/ 2 puff Act twice a day Nebulizer 11/04 Active to be used for breathing treatments Albuterol 11/04 Active Nebulizer (2.5mg/3M 1 vial via Unknown L) 0.083% nebulizer 4 times daily as needed Vitamin D 11/04 Active Tablets 1000Unit by mouth everyday Multivitamins 11/04 Active Capsules 1 by mouth every day Keflex 0000 Active Capsules 500mg 1 tab by Unknown /0000 mouth four times a day Keflex 12/31 Hx Capsules 500mg 20cap 1 tab by shahram s mouth asya Rouse MD - times a Hydrocodone-Acet 12/26 Hx Tablets 5-325mg 60tab 1-2 tabs M19.011 Zaneb aminophen s by mouth MD Nasim - four times 01/12 a day needed pain for surgery 12/31/16 Oxycodone HCL 03/07 Hx Capsules 5mg 60cap 1-2 tabs Zaneb s by mouth MD Nasim - every 4-6 04/30 hours prn pain Duoneb 11/04 Hx Solution 0.5-2.5(3 1 unit Unknown )mg/3ML nebl every - 6 hours as 01/29 needed Fluticasone 11/04 Hx Suspension 50mcg/Act 1 spray Unknown Propionate each - nostril 03/03 daily Levocetirizine 11/04 Hx Tablets 5mg 1 by mouth Unknown Dihydrochloride /2015 every day - 03/03 Hydrocodone-Acet 11/04 Hx Tablets 5-325mg 1 by mouth Unknown aminophen /2015 every 4-6 - hours prn. 03/03 Medications Administered in Office Medication Date Status Form Strength Qnty SIG Indications Ordering Provider Triamcinolone 10/24/ Administered Injection Zaneb (Kenalog) 2016 MD Nasim Triamcinolone 07/31/ Administered Injection Zaneb (Kenalog) 2016 MD Nasim Triamcinolone 06/10/ Administered Injection Zaneb (Kenalog) 2016 MD Nasim No Injection 01/30/ Administered Injection Zaneb 2015 MD Nasim Vital Signs Date Vital Result Comment 07/06/2017 Height 65 inches 5'5" Weight 211.00 lb Heart Rate 76 /min BP Systolic 136 mmHg BP Diastolic 70 mmHg Respiratory Rate 18 /min Body Temperature 98.0 F Pain Level 10 BMI (Body Mass Index) 35.1 kg/m2 06/23/2017 Height 65 inches 5'5" Weight 209.00 lb BP Systolic 126 mmHg BP Diastolic 72 mmHg Respiratory Rate 18 /min Pain Level 6 BMI (Body Mass Index) 34.8 kg/m2 06/12/2017 Height 65 inches 5'5" Weight 209.00 lb Heart Rate 78 /min BP Systolic 124 mmHg BP Diastolic 78 mmHg Respiratory Rate 16 /min Body Temperature 98.1 F Pain Level 10 BMI (Body Mass Index) 34.8 kg/m2 06/11/2017 Height 65 inches 5'5" Weight 209.00 lb BP Systolic 124 mmHg BP Diastolic 76 mmHg Respiratory Rate 20 /min Pain Level 6 BMI (Body Mass Index) 34.8 kg/m2 02/03/2017 Height 65 inches 5'5" Weight 209.00 lb Heart Rate 76 /min BP Systolic 131 mmHg BP Diastolic 80 mmHg Respiratory Rate 16 /min Body Temperature 98.2 F Pain Level 0 BMI (Body Mass Index) 34.8 kg/m2 01/13/2017 Heart Rate 64 /min BP Systolic Sitting 120 mmHg BP Diastolic Sitting 85 mmHg Body Temperature 98.0 F Pain Level 2 12/26/2016 Height 65 inches 5'5" Weight 209.00 lb Heart Rate 78 /min BP Systolic Sitting 126 mmHg BP Diastolic Sitting 96 mmHg Respiratory Rate 18 /min Body Temperature 97.8 F Pain Level 9 BMI (Body Mass Index) 34.8 kg/m2 11/11/2016 Height 65 inches 5'5" Weight 215.00 lb Heart Rate 68 /min BP Systolic 118 mmHg BP Diastolic 70 mmHg Respiratory Rate 16 /min Body Temperature 98.1 F Pain Level 0 BMI (Body Mass Index) 35.8 kg/m2 10/24/2016 Height 65 inches 5'5" Weight 215.00 lb BP Systolic 123 mmHg BP Diastolic 77 mmHg Respiratory Rate 16 /min Body Temperature 98.2 F Pain Level 7 BMI (Body Mass Index) 35.8 kg/m2 09/09/2016 Height 65 inches 5'5" Weight 215.00 lb Heart Rate 69 /min BP Systolic 135 mmHg BP Diastolic 88 mmHg Body Temperature 97.1 F Pain Level 0 BMI (Body Mass Index) 35.8 kg/m2 07/31/2016 Height 64.75 inches 5'4.75" Weight 214.00 lb Heart Rate 60 /min Respiratory Rate 16 /min Pain Level 0 BMI (Body Mass Index) 35.9 kg/m2 07/11/2016 Height 64.75 inches 5'4.75" Weight 214.00 lb Heart Rate 81 /min BP Systolic 135 mmHg BP Diastolic 75 mmHg Pain Level 0 BMI (Body Mass Index) 35.9 kg/m2 06/10/2016 Height 64.75 inches 5'4.75" Weight 214.00 lb Respiratory Rate 18 /min Pain Level 2 BMI (Body Mass Index) 35.9 kg/m2 05/01/2016 Height 64.75 inches 5'4.75" Weight 214.00 lb Respiratory Rate 16 /min Pain Level 0 + discomfort, tenderness and stiff BMI (Body Mass Index) 35.9 kg/m2 03/20/2016 Height 64.75 inches 5'4.75" Weight 214.00 lb Respiratory Rate 16 /min Pain Level 4 discomfort not pain BMI (Body Mass Index) 35.9 kg/m2 03/04/2016 Height 64.75 inches 5'4.75" Weight 214.00 lb Heart Rate 76 /min BP Systolic 124 mmHg BP Diastolic 78 mmHg BMI (Body Mass Index) 35.9 kg/m2 01/31/2016 Weight 204.00 lb 01/03/2016 Height 60 inches 5'0" Weight 211.00 lb Heart Rate 74 /min BP Systolic 124 mmHg BP Diastolic 84 mmHg O2 % BldC Oximetry 98 % BMI (Body Mass Index) 41.2 kg/m2 12/10/2015 Height 60 inches 5'0" Weight 211.00 lb Heart Rate 68 /min BP Systolic 126 mmHg BP Diastolic 82 mmHg Respiratory Rate 14 /min O2 % BldC Oximetry 97 % BMI (Body Mass Index) 41.2 kg/m2 11/06/2015 Height 60 inches 5'0" Weight 211.00 lb with shoes on Heart Rate 71 /min BP Systolic Sitting 124 mmHg BP Diastolic Sitting 76 mmHg Respiratory Rate 14 /min O2 % BldC Oximetry 96 % BMI (Body Mass Index) 41.2 kg/m2 Neck Circumference in inches 15.5 Results Test Date Test Result H/L Range Note Laboratory test 12/31/2016 Surgical Pathology SEE RESULT BELOW 1 finding Laboratory test 03/10/2016 Surgical Pathology SEE RESULT BELOW 2, 3 finding 1 SEE RESULT BELOW Name: ROSE MARIE AVILA : [address]: Isidro Rouse MD Acct: [id number] Unit: [id number] AGE: 51 Location: OR Re12/31/16 SEX: F Status: DEP SDC SPEC: [id number] ROCIO: 12/31/16- SUBM DR: Isidro Rouse MD REQ: [id number] RECD: 12/31/16 STATUS: SOUT _ ORDERED: Decal, LEVEL 3 FINAL DIAGNOSIS Right distal clavicle, resection: -- Severe degenerative osteoarthritic changes. PRE-OPERATIVE DIAGNOSIS Painful right shoulder. GROSS DESCRIPTION The specimen is received in formalin labeled, Portion of Distal Clavicle Right, and consists of a 2.0 x 1.2 x 0.7 cm russell-red irregular focally cauterized bone fragment with a smooth margin of resection. Volunteer Coordinator sections, one cassette following decalcification. MICROSCOPIC DESCRIPTION Signed (signature on file) Johan Juárez MD 1023 END OF REPORT * ML=Testing performed at Main Lab DEPARTMENT OF PATHOLOGY, [address] [place] [address] Johan Juárez M.D. Director [facility] # [id number] 2 [id number] SEE RESULT BELOW Name: ROSE MARIE AVILA : [address]: Isidro Rouse MD Acct: [id number] Unit: [id number] AGE: 50 Location: [facility] Re03/10/16 SEX: F Status: REG [facility] [place] SPEC: [id number] ROCIO: 03/10/16-17[address] [facility] DR: Isidro Rouse MD REQ: [id number] RECD: 03/11/16 STATUS: SOUT _ ORDERED: LEVEL III COMMENTS: [id number] FINAL DIAGNOSIS Shoulder, right, shavings: -- Fragments of fibrocartilage with neovascularization and myxoid change, fragments of hyperplastic synovium with neovascularization and myxoid change and skeletal muscle fragments. CLINICAL HISTORY No history given GROSS DESCRIPTION The specimen is received in formalin labeled, Shoulder Shavings-Right, and consists of a 3.2 x 2.9 x 0.4 cm aggregate of yellow and white tissue fragments admixed with red-brown blood clot. Volunteer Coordinator sections, one cassette. Signed (signature on file) Johan Juárez MD 1346 END OF REPORT * ML=Testing performed at Main Lab DEPARTMENT OF PATHOLOGY, [address] [place] [address] Johan Juárez M.D. Director [facility] # [id number] Procedures Date CPT Code Description Status 05/31/2017 Diabetic Foot Exam Completed 12/31/2016 42776 claviculectomy;partial Completed 12/31/2016 22728 claviculectomy;partial Completed 10/24/2016 73076 Inject/Drain Joint/Bursa Intermediate Completed 07/31/2016 11841 Inject/Drain Joint/Bursa Intermediate Completed 06/10/2016 58345 Inject/Drain Joint/Bursa Major Completed 03/10/2016 77639 Arthroscopy Shoulder,W/Rotator Cuff Repair Completed 03/10/2016 63041 Arthroscopy Shoulder,W/Rotator Cuff Repair Completed 03/10/2016 84568 Arthroscopy,Shoulder Decompression Of Subacromial Space Completed W/Acromio 03/10/2016 24003 Arthroscopy,Shoulder Decompression Of Subacromial Space Completed W/Acromio 03/10/2016 45308 Arthroscopy,Shoulder,Distal Claviculectomy Incl Dist Completed Articular SR 03/10/2016 44951 Arthroscopy,Shoulder,Distal Claviculectomy Incl Dist Completed Articular SR 03/10/2016 47141 Arthroscopy Shoulder Debridement Extensive Completed 03/10/2016 26323 Arthroscopy Shoulder Debridement Extensive Completed 03/10/2016 30285 Tenodesis Biceps Long Tendon Completed 03/10/2016 63359 Tenodesis Biceps Long Tendon Completed 01/31/2016 01641 Inject/Drain Joint/Bursa Intermediate Completed 11/30/2015 89174 Polysomnography Sleep Staging 4+ Parameters Completed Encounters Type Date Location Provider CPT E/M Dx Office Visit 06/23/2017 [facility] [place] [address] L30.9 9:00a Office Visit 06/23/2017 [facility] [place] [address] M25.532 8:15a C.M.A. S63.502D Office Visit 06/12/2017 10:30a [facility] [place] [address] M72.2 C.M.A. M67.01 M67.02 Office Visit 06/11/2017 8:00a [facility] [place] [address] M25.532 C.M.A. S63.502A Office Visit 12/26/2016 11:30a [facility] [place] [address] M19.011 C.M.A. M75.21 M25.541 Office Visit 11/11/2016 10:45a [facility] [place] [address] M19.011 C.M.A. M75.21 S46.011D Office Visit 10/24/2016 9:45a [facility] [place] [address] M19.011 C.M.A. M75.21 S46.011D Office Visit 09/09/2016 8:00a [facility] [place] [address] M19.011 C.M.A. M75.21 S46.011D Office Visit 07/31/2016 8:15a [facility] [place] [address] M19.011 C.M.A. M75.21 S46.011D Office Visit 07/11/2016 8:30a [facility] [place] [address] M19.011 C.M.A. M75.21 S46.011D Office Visit 06/10/2016 8:00a [facility] [place] [address] M19.011 C.M.A. M75.21 S46.011D Office Visit 04/07/2016 11:30a [facility] 12753 C.M.A. Office Visit 01/31/2016 8:30a [facility] [place] [address] M54.2 C.M.A. M54.12 M19.211 S46.011A S46.101A Office Visit 01/03/2016 8:30a [facility] [address] G47.33 [facility] E66.09 Office Visit 11/06/2015 2:00p [facility] [place] [address] G47.9 [facility] E66.09 Plan of Care Future Appointment(s):07/24/2017 8:30 am - Jeff Kennedy MD at [facility].07/06/2017 - Sera Rush M.D.M25.532 Pain in left wristNew Xrays:MRI Wrist Left ArthrogramFollow up:Follow up: after testing is [id number] Unspecified sprain of left wrist, subsequent encounter
[2017-07-27] MEDS ORDERED: Ketorolac INJ* 60 MG/2 ML VIAL IM ONE (02:09)
[2017-07-27] MEDS ORDERED: Ondansetron TAB* 4 MG PO ONE (03:01)
--- NOTE | 2017-07-27 03:03 | ED ---
Carmen Connor Gabriel, scribed for Desiree Shi MD on 07/27/17 at 0201 . Lower Extremity - HPI Summary HPI Summary: This patient is a 52 year old F presenting to [facility] with a chief complaint of LE pain. Pt has plantar fasciitis in both her feet and started PT 2 weeks ago. She said she cannot wait till the morning to call her business executive she is unable to walk. The patient rates the pain 10/10 in severity and states is radiates up in to her legs. - History of Current Complaint Chief Complaint: EDExtremityUpper Stated Complaint: LEG/FEET PAIN Time Seen by Provider: 07/27/17 01:47 Hx Obtained From: Patient Severity Initially: Severe Severity Currently: Severe Pain Intensity: 10 Pain Scale Used: 0-10 Numeric Timing: Constant Aggravating Factor(s): Standing, Ambulation Alleviating Factor(s): Rest Able to Bear Weight: Yes - Allergies/Home Medications Allergies/Adverse Reactions: Allergies Allergy/AdvReac Type Severity Reaction Status Date / Time acetaminophen [From Percocet] Allergy Nausea Verified 07/27/17 02:01 naproxen Allergy Rash Verified 07/27/17 02:01 oxycodone [From Percocet] Allergy Nausea Verified 07/27/17 02:01 SEAFOOD Allergy Severe Rash And Uncoded 07/27/17 02:01 Itching TRAMADOL Allergy Severe Altered Uncoded 07/27/17 02:01 Mental Status ENVIRONMENTAL Allergy Intermediate Eyes Uncoded 07/27/17 02:01 Itchy/Swollen/Red/Watery LATEX Allergy Intermediate Rash And Uncoded 07/27/17 02:01 Itching PMH/Surg Hx/FS Hx/Imm Hx Endocrine/Hematology History: Denies: Hx Diabetes, Hx Systemic Lupus Erythematosus Cardiovascular History: Denies: Hx Congestive Heart Failure, Hx Hypertension, Hx Pacemaker/ICD Respiratory History: Reports: Hx Asthma - USES INHALER, Hx Sleep Apnea - DX 2016 , Other Respiratory Problems/Disorders - HAS ALLERGY SHOTS BY DR BRITO Q WEEK ON MONDAYS GI History: Reports: Hx Gastroesophageal Reflux Disease - R/T FOOD INTAKE, Hx Ulcer - HEALED WELL History: Reports: Hx Kidney Stones - WHEN 14YEARS OLD Denies: Hx Dialysis, Hx Renal Disease Musculoskeletal History: Reports: Other Musculoskeletal History - POSSIBLE NECK PROBLEMS, GOUT Denies: Hx Arthritis, Hx Rheumatoid Arthritis Sensory History: Reports: Hx Contacts or Glasses - GLASSES Denies: Hx Hearing Aid Opthamlomology History: Reports: Hx Contacts or Glasses - GLASSES Neurological History: Reports: Hx Migraine - HX OF OCCASIONAL LAST EPISODE 1 YR AGO Psychiatric History: Denies: Hx Panic Disorder - Cancer History Hx Chemotherapy: No - Surgical History Surgery Procedure, Year, and Place: TUBAL LIGATION 1987. RIGHT shoulder REPAIR 02/2016. Fatty tissue removed x2 around same side back of shoulder, 02/2016 also buttock-back of leg Hx Anesthesia Reactions: No - SEVERE N/V - Immunization History Date of Tetanus Vaccine: unknown Date of Influenza Vaccine: has not received Infectious Disease History: No Infectious Disease History: Denies: Traveled Outside the [place] in Last 30 Days - Family History Known Family History: Positive: Cardiac Disease - father, brother, mother - [place], Diabetes - Social History Occupation: Employed Full-time Alcohol Use: None Substance Use Type: Reports: None Hx Tobacco Use: Yes - quit 2002 Smoking Status (MU): Former Smoker Review of Systems Negative: Fever Positive: Other - LE pain All Other Systems Reviewed And Are Negative: Yes Physical Exam - Summary Physical Exam Summary: VITAL SIGNS: Reviewed. GENERAL: Patient is a well-developed and nourished female who is lying comfortable in the stretcher. Patient is not in any acute respiratory distress. HEAD AND FACE: No signs of trauma. No ecchymosis, hematomas or skull depressions. No sinus tenderness. EYES: PERRLA, EOMI x 2, No injected conjunctiva, no nystagmus. EARS: Hearing grossly intact. Ear canals and tympanic membranes are within normal limits. MOUTH: Oropharynx within normal limits. NECK: Supple, trachea is midline, no adenopathy, no JVD, no carotid bruit, no c- spine tenderness, neck with full ROM. CHEST: Symmetric, no tenderness at palpation LUNGS: Clear to auscultation bilaterally. No wheezing or crackles. CVS: Regular rate and rhythm, S1 and S2 present, no murmurs or gallops appreciated. ABDOMEN: Soft, non-tender. No signs of distention. No rebound no guarding, and no masses palpated. Bowel sounds are normal. EXTREMITIES: FROM in all major joints, no edema, no cyanosis or clubbing. Tenderness over the soles of both feet NEURO: Alert and oriented x 3. No acute neurological deficits. Speech is normal and follows commands. SKIN: Dry and warm Triage Information Reviewed: Yes Vital Signs On Initial Exam: Initial Vitals Temp Pulse Resp BP Pulse Ox 97.3 F 60 60 141/68 100 07/27/17 01:47 07/27/17 01:47 07/27/17 01:47 07/27/17 01:47 07/27/17 01:47 Vital Signs Reviewed: Yes Diagnostics - Vital Signs Vital Signs Temp Pulse Resp BP Pulse Ox 07/27/17 01:47 97.3 F 60 60 141/68 100 - Laboratory Lab Statement: Any lab studies that have been ordered have been reviewed, and results considered in the medical decision making process. Lower Extremity Course/Dx - Course Assessment/Plan: This patient is a 52 year old F presenting to [facility] with a chief complaint of LE pain. Pt has plantar fasciitis in both her feet and started PT 2 weeks ago. She said she cannot wait till the morning to call her business executive she is unable to walk. The patient rates the pain 10/10 in severity and states is radiates up in to her legs. In the ED course the patient was given toradol. Dx plantar fasciitis. Patient will be discharged and follow up from PCP. The patient is agreeable with this plan. - Diagnoses Provider Diagnoses: Plantar fasciitis Discharge - Discharge Plan Condition: Stable Disposition: HOME Referrals: Adry Puri MD [Primary Care Provider] - 3 Days Additional Instructions: RETURN TO EMERGENCY DEPARTMENT FOR ANY NEW OR WORSENING SYMPTOMS The documentation as recorded by the Carmen hui Gabriel accurately reflects the service I personally performed and the decisions made by , Desiree Shi MD.
[2017-07-27 03:17] VITALS: BP 136/70
== END 2017-07-27 03:10 | disposition home or self-care (01) ==
LOC: ED 01:43
DX: M72.2 Plantar fascial fibromatosis (principal); Z87.891 Personal history of nicotine dependence
CPT/HCPCS: 96372; 99282; A9270-GY; J1885

== ENCOUNTER 2017-08-11 08:45 | Day surgery (SDC) | payer OTHER ==
--- NOTE | 2017-08-03 15:35 | HP ---
PREOPERATIVE HISTORY AND PHYSICAL: DATE OF ADMISSION/SURGERY: 08/11/17 [facility] ATTENDING SURGEON: Sera Rush MD * (DICTATED BY REINA BEE) PROCEDURE: Left wrist arthroscopy, possible scapholunate ligament repair. CHIEF COMPLAINT: Left wrist pain. HISTORY OF PRESENT ILLNESS: This is a 52-year-old female, who sustained injury to her left wrist on 06/10/17. She was in [facility] at that time and she was carrying about 5 bags on her left forearm and she was holding a suitcase in her right arm. She was going up over some snow and slipped and she said her left arm just dropped down with all of the bags on her arm. She did not fall, but after the incident, she has had persistent pain in the left wrist and she has been wearing a brace to try to support the wrist. She complains of pain on the ulnar aspect of the wrist which radiates distally and proximally along the dorsal side. X-rays of the left wrist showed no significant findings; however, a subsequent MRI arthrogram shows a scapholunate tear with extension of contrast into the mid carpal joint. Dr. Rush is recommending surgical intervention at this time for best outcome and the patient has consented to proceed. PAST MEDICAL HISTORY: 1. Obstructive sleep apnea, but no CPAP. 2. Various orthopedic problems. 3. Asthma. 4. History of heart murmur. PAST SURGICAL HISTORY: 1. Tubal ligation. 2. Lipoma excision from right shoulder and leg. 3. Right rotator cuff repair. CURRENT MEDICATIONS: 1. Albuterol sulfate nebulizer 4 times a day p.r.n. 2. Diclofenac sodium 75 mg twice a day. 3. Diclofenac sodium 1% apply 4 times daily as needed. 4. Dulera 200-5 mcg/ACT 2 puffs twice a day. 5. Ibuprofen 800 mg q.8 hours p.r.n. pain. 6. Ketorolac tromethamine 10 mg 1 tablet q.12 hours p.r.n. 7. Multivitamins daily. 8. Ventolin HFA inhaler 2 puffs 4 times a day p.r.n. 9. Vitamin D 1000 units daily. ALLERGIES: NAPROXEN causes hives, LATEX causes skin irritation. FAMILY MEDICAL HISTORY: Lung cancer, heart disease, angina, and diabetes. 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 She is a former smoker, she quit approximately 15 years ago. Prior to that, she smoked 2 packs per day for about 15 years. She denies illicit drug use and does not drink alcohol. REVIEW OF SYSTEMS: General: Negative for fevers, chills, or night sweats. No known anesthesia problems. HEENT: Negative for headache, lightheadedness, or syncopal episodes. Integumentary: Negative for abrasions, lesions, or open wounds. Cardiothoracic: Negative for hypertension, chest pain, palpitations, or edema. Pulmonary: Positive for occasional shortness of breath related to asthma. Negative for chronic cough or COPD. GI: Negative for nausea, vomiting , diarrhea, constipation, or GERD. : Negative for nocturia, urinary frequency, urgency, history of UTIs or kidney problems. Musculoskeletal: Positive for current complaint. Neurological: Negative for paresthesias, numbness, history of seizure, stroke, or epilepsy. Endocrine: Negative for diabetes and thyroid issues. Hematologic: Negative for easy bruising, anemia, excessive bleeding, or history of DVT. Infectious Disease: Negative for history of MRSA, hepatitis C, or HIV. PHYSICAL EXAMINATION GENERAL: Well-developed, well-nourished 52-year-old female, in no acute distress. VITAL SIGNS: Height 5 feet 5 inches. Pulse rate 71, blood pressure 128/72. Weight 211 pounds. HEENT: Normocephalic, atraumatic. Pupils are equal, round, and reactive to light and accommodation. Extraocular movements are intact. Throat is clear. NECK: Supple. No palpable lymph nodes. PULMONARY: Lungs are clear to auscultation bilaterally. No wheezes, rales, or rhonchi. CARDIOVASCULAR: Regular rate and rhythm. S1, S2. No murmurs, rubs, or gallops. No edema. ABDOMEN: Positive bowel sounds. Soft, nontender. NEUROLOGICAL: Alert and oriented x3. Cranial nerves II through XII are intact. Sensation is intact to light touch. MUSCULOSKELETAL: On exam of her left wrist, there is mild swelling on the ulnar dorsal aspect of the wrist down to the metacarpal heads. She has tenderness to palpation across the whole dorsum of the wrist from the radial aspect to the ulnar aspect and down to the dorsal aspect of the hand. She has good extension of her fingers. She can make a fist, but has trouble squeezing it tightly. Wrist range of motion is painful for her. Skin is intact. Sensation is intact to light touch. IMAGING STUDIES: X-rays are unremarkable. MRI shows a scapholunate ligament tear with extension of contrast into the mid carpal joint. TFCC appears intact. IMPRESSION: Left wrist scapholunate ligament tear. PLAN: The patient is scheduled to undergo a left wrist arthroscopy, possible scapholunate ligament repair with Dr. Rush on 08/11/17. She will return to the office 10 days postop for followup and suture removal. A prescription for Ultracet was e-scribed to the patient's pharmacy for postoperative pain management. REINA BEE [id number]/[facility] #: [id number] MANI
[~2017-08-11 08:45] MED LIST changes: -Dexamethasone IV* 4 MG/ML 1 ML (4 MG) IV SLOW PU ONE; -Famotidine IV* 10 MG/ML 2 ML (20 mg) IV ONE; -Levalbuterol 0.63MG/3ML NEB INH ONE; +Sodium Citrate/Citric Acid* 15 ML UDC PO ONE
[2017-08-11] MEDS ORDERED: ceFAZolin 2 GM PREMIX (*) 2 GM/50 ML BAG IVPB ONE (08:58)
[2017-08-11] MEDS ORDERED: Sodium Citrate/Citric Acid* 15 ML UDC ONE (08:58)
[2017-08-11] MEDS ORDERED: Bupivacaine 0.5% SDV PF* 10-30ML VIAL ONE (10:13)
[2017-08-11] MEDS ORDERED: Lidocaine 2% PF * 5 ML VIAL ONE (10:30)
[2017-08-11] MEDS ORDERED: Propofol* 10 MG/ML 20 ML BTL IV PUSH ONE (10:30)
[2017-08-11] MEDS ORDERED: fentaNYL* 50 MCG/ML 2 ML VIAL (100 MCG VIAL) ONE (10:31)
[2017-08-11] MEDS ORDERED: Dexamethasone IV* 4 MG/ML 1 ML (4 MG) ONE (10:46)
[2017-08-11] MEDS ORDERED: Naloxone* 0.4 MG/ML 1 ML VIAL IV PRN (11:08)
[2017-08-11] MEDS ORDERED: fentaNYL* 50 MCG/ML 2 ML VIAL (100 MCG VIAL) IV PRN (11:08)
[2017-08-11] MEDS ORDERED: Ondansetron INJ* 2 MG/ML VIAL IV PRN (11:08)
[2017-08-11] MEDS ORDERED: Ondansetron INJ* 2 MG/ML VIAL ONE (12:34)
[2017-08-11 13:06] VITALS: BP 138/72
--- NOTE | 2017-08-12 05:27 | OP ---
DATE OF OPERATION: 08/11/17 - [facility] DATE OF : 65 SURGEON: Sera Rush MD REGISTERED NURSE SUPERVISOR: REINA Quigley ANESTHESIA: General. PRE-OP DIAGNOSIS: Left wrist scapholunate ligament tear. 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 OPERATIVE PROCEDURE: Left wrist arthroscopy and scapholunate ligament repair. ESTIMATED BLOOD LOSS: Zero. TOURNIQUET TIME: About an hour. INDICATION FOR PROCEDURE: Samantha is a 52-year-old woman who injured her left wrist when she fell in some snow. She has persistent pain. MRI shows a questionable scapholunate ligament tear. She presents for wrist arthroscopy and scapholunate ligament repair. OPERATIVE FINDINGS: The patient had a complete tear of her scapholunate ligament. The articular surface of the radius scapholunate and the TFCC were all intact. The articular surface of the capitate was markedly damaged with areas of bare bone. The scapholunate ligament was completely torn, but there was some ligamentous tissue attached to the scaphoid which appear to be repairable. DESCRIPTION OF PROCEDURE: The patient was brought to the operating room, was given a general anesthetic and placed in a supine position on operating table with the tourniquet around her left upper arm. Skin of her left upper extremity was prepped and draped in the usual sterile fashion. The upper extremity was exsanguinated and the tourniquet elevated to 250 mmHg. One stab incision was made just distal to Carol's tubercle and the arthroscope was placed in the radiocarpal joint. Diagnostic arthroscopy was performed with the above described findings. The second portal was created at the 4-5 interval and a 2.0 Gator shaver was placed in the radiocarpal joint to debride the synovitis around in the TFCC. The TFCC did not have a tear; however, was able to completely drive the scope through the scapholunate interval and into the mid carpal joint where I found a large defect on the capitate articular surface. The arthroscopy instruments were removed and the first incision was extended proximally and distally. The third extensor compartment was incised and the EPL tendon was transposed radially. The posterior interosseous nerve was removed with a cautery and then the wrist joint capsule was incised longitudinally revealing the scapholunate ligament tear. The area of insertion on the lunate was debrided with a curette and then 2 Mitek suture anchors were placed in the lunate and the sutures passed through the ligamentous tissue attached to the scaphoid. The joint was then reduced by direct dorsal pressure on the capitate and a 0.045 inch K-wire was driven through the scaphoid into the capitate and the second one through the scaphoid into the lunate while trying to hold the scapholunate gap together. Next, the pins were cut under the skin and then the suture anchors were tied. The wound was irrigated and the wrist joint capsule was closed with 2-0 Vicryl suture. The extensor retinaculum was closed with 2-0 Vicryl suture and the skin edges reapproximated with 4-0 nylon suture. The wound was dressed with Xeroform, 4x4, Webril and a sugar-tong splint. The patient tolerated the procedure well and was brought to the recovery room in good condition. [id number]/[facility] #: [id number] MANI
== END 2017-08-11 13:04 | disposition home or self-care (01) ==
LOC: OREAST 08:45
PROVIDERS: ATTEND Orthopaedic Surgery
DX: S63.512D Sprain of carpal joint of left wrist, subsequent encounter (principal); M75.101 Unspecified rotator cuff tear or rupture of right shoulder, not specified as traumatic; G47.33 Obstructive sleep apnea (adult) (pediatric); J45.909 Unspecified asthma, uncomplicated; Z88.8 Allergy status to other drugs, medicaments and biological substances; Z91.040 Latex allergy status; Z87.891 Personal history of nicotine dependence; X58.XXXD Exposure to other specified factors, subsequent encounter
CPT/HCPCS: A9270-GY; C1713; C1776; J0690; J1100; J2405; J2704; J3010

== ENCOUNTER 2017-09-07 23:04 | Emergency (ER) | payer OTHER ==
--- OUTSIDE RECORDS SUMMARY | 2017-09-07 23:35 | XMS REPORT ---
:1965 External Reference #:[id number] Author Organization [facility] Address [address] [address] Phone [phone] Care Team Providers Name Role Phone Adry Puri MD Primary Care Physician Unavailable Payers Type Date Identification Numbers Payment Provider Subscriber Commercial Effective: Policy Number: Femi Avila 2017 [id number] Group Number: [id number] [address] PayID: [id number] [place] [address] Medigap Part B Expires: 2017 Policy Number: [id number] Medicaid Samantha Avila Group Name: 1 1 [address] PayID: [id number] [place] [address] Problems Date Description Provider Status Onset: 11/06/2015 [...] hand Isidro Rouse MD Active Onset: 06/12/2017 Plantar fascial fibromatosis Jeff Kennedy MD Active Onset: 06/12/2017 Tendon contracture Jeff Kennedy MD Active Family History Date [...] Form Strength Qnty SIG Indications Ordering Provider Ultracet 08/03 Active Tablets 37.5-325m 15tab 1 tab by g s mouth Rush, every 4-6 M.D. hours as needed pain. Do not take until after surgery. Diclofenac 07/[address] 75mg 60tab take 1 tab Jeff Sodium s by mouth Marcia, twice a MD day with food or milk Ketorolac 07/27 Active Tablets 10mg 6tabs one tab Brooke Tromethamine every 12 Alli, hours as M.D. needed Diclofenac 07/08 Active Gel 1% 100gm apply 4 Sera Sodium times Rush, daily as M.D. needed for pain Ibuprofen 07/06 Active Tablets 800mg 90tab 1 tab by Sera s mouth Rush, every 8 M.D. hours [...] Capsules 1 by mouth every day Keflex Active Capsules 500mg 1 tab by Unknown / mouth four times a day Keflex 12/31 Hx Capsules 500mg 20cap 1 tab by Zaneb /2016 s mouth four MD Nasim - times a Hydrocodone-Acet 12/26 Hx Tablets 5-325mg 60tab 1-2 tabs M19.011 neb aminophen s by mouth MD Nasim - four times 01/12 a day needed pain for surgery 12/31/16 Oxycodone HCL 03/07 Hx Capsules 5mg 60cap 1-2 tabs s by mouth MD Nasim - every 4-6 /07 hours prn pain Duoneb 11/04 Hx Solution 0.5-2.5(3 1 unit )mg/3ML nebl every - 6 hours as 01/29 needed Fluticasone 11/04 Hx Suspension 50mcg/Act 1 spray Unknown each - nostril 03/03 Levocetirizine 11/04 Hx Tablets 5mg 1 by mouth Unknown Dihydrochloride every day - 03/03 Hydrocodone-Acet 11/04 Hx Tablets 5-325mg 1 by mouth Unknown aminophen every 4-6 - hours prn. 03/03 Medications Administered in Office Medication Date Status Form Strength Qnty SIG Indications Ordering Provider Triamcinolone 10/24/ Administered Injection Zaneb (Kenalog) 2016 MD Nasim Triamcinolone 07/31/ Administered Injection Zaneb (Kenalog) 2016 MD Nasim Triamcinolone 06/10/ Administered Injection Zaneb (Kenalog) 2016 MD Nasim No Injection 01/30/ Administered Injection Zaneb 2015 MD Nasim Vital Signs Date Vital Result Comment 09/07/2017 Height 65 inches 5'5" Weight 205.00 lb Heart Rate 77 /min Respiratory Rate 18 /min Body Temperature 97.0 F Pain Level 9 BMI (Body Mass Index) 34.1 kg/m2 09/04/2017 Height 65 inches 5'5" Weight 205.00 lb Heart Rate 80 /min BP Systolic 130 mmHg BP Diastolic 80 mmHg Respiratory Rate 14 /min Body Temperature 98.5 F Pain Level 9 BMI (Body Mass Index) 34.1 kg/m2 08/28/2017 Height 65 inches 5'5" Weight 207.00 lb per patient Respiratory Rate 14 /min Pain Level 3 BMI (Body Mass Index) 34.4 kg/m2 08/19/2017 Height 65 inches 5'5" Heart Rate 83 /min BP Systolic 138 mmHg BP Diastolic 78 mmHg Respiratory Rate 16 /min Body Temperature 99.4 F Pain Level 2 08/03/2017 Height 65 inches 5'5" Heart Rate 71 /min BP Systolic 128 mmHg BP Diastolic 72 mmHg Respiratory Rate 16 /min Body Temperature 98.6 F Pain Level 4 07/24/2017 Height 65 inches 5'5" Heart Rate 74 /min BP Systolic 118 mmHg BP Diastolic 78 mmHg Respiratory Rate 16 /min Body Temperature 97.4 F Pain Level 2 07/06/2017 Height 65 inches 5'5" Weight 211.00 [...] 3 finding 1 SEE RESULT BELOW Name: AVILA,DEBNIA : [address]: Isidro Rouse MD Acct: [id number] Unit: [id number] AGE: 51 Location: OR Re12/31/16 SEX: F Status: [place] SPEC: [id number] ROCIO: 12/31/16- SUBM DR: Isidro Rouse MD REQ: [id number] RECD: 12/31/16 STATUS: SOUT _ ORDERED: Decal, LEVEL 3 FINAL DIAGNOSIS Right distal clavicle, resection: -- Severe degenerative osteoarthritic changes. PRE-OPERATIVE DIAGNOSIS Painful right shoulder. GROSS DESCRIPTION The specimen is received in formalin labeled, Portion of Distal Clavicle Right, and consists of a 2.0 x 1.2 x 0.7 cm russell-red irregular focally cauterized bone fragment with a smooth margin of resection. Sequins Winder sections, one cassette following decalcification. MICROSCOPIC DESCRIPTION Signed (signature on file) Johan Juárez MD 1023 END OF REPORT * ML=Testing performed at Main Lab DEPARTMENT OF PATHOLOGY, [address] [place] [address] Johan Juárez M.D. Director [facility] # [id number] 2 [id number] 3 SEE RESULT BELOW Name: SAMANTHA AVILA : [address]: Isidro Rouse MD Acct: [id number] Unit: [id number] AGE: 50 Location: [facility] Re03/10/16 SEX: F Status: [place] [facility] [place]C: [id number] ROCIO: 03/10/16-[address]: Isidro Rouse MD REQ: [id number] RECD: 03/11/16 STATUS: SOUT _ ORDERED: LEVEL III COMMENTS: [id number] FINAL DIAGNOSIS Shoulder, right, shavings: -- Fragments [...] tissue fragments admixed with red-brown blood clot. Sequins Winder sections, one cassette. Signed (signature on file) Johan Juárez MD 1346 END OF REPORT * ML=Testing performed at Main Lab DEPARTMENT OF PATHOLOGY, [address] [place] [address] Johan Juárez M.D. Director [facility] # [id number] Procedures Date CPT Code Description Status 08/19/2017 55097 Short Arm Cast Application Completed 08/11/2017 08766 Carpectomy One Bone Completed 08/11/2017 64243 Carpectomy One Bone Completed 05/31/2017 Diabetic Foot Exam Completed 12/31/2016 49204 claviculectomy;partial Completed 12/31/2016 11170 claviculectomy;partial Completed 10/24/2016 51001 Inject/Drain Joint/Bursa Intermediate Completed 07/31/2016 08069 Inject/Drain Joint/Bursa Intermediate Completed 06/10/2016 43598 Inject/Drain Joint/Bursa Major Completed 03/10/2016 24430 Arthroscopy Shoulder,W/Rotator Cuff Repair Completed 03/10/2016 14321 Arthroscopy Shoulder,W/Rotator Cuff Repair Completed 03/10/2016 35058 Arthroscopy,Shoulder Decompression Of Subacromial Space Completed W/Acromio 03/10/2016 71165 Arthroscopy,Shoulder Decompression Of Subacromial Space Completed W/Acromio 03/10/2016 03137 Arthroscopy,Shoulder,Distal Claviculectomy Incl Dist Completed Articular SR 03/10/2016 26011 Arthroscopy,Shoulder,Distal Claviculectomy Incl Dist Completed Articular SR 03/10/2016 18145 Arthroscopy Shoulder Debridement Extensive Completed 03/10/2016 63413 Arthroscopy Shoulder Debridement Extensive Completed 03/10/2016 64817 Tenodesis Biceps Long Tendon Completed 03/10/2016 48086 Tenodesis Biceps Long Tendon Completed 01/31/2016 02408 Inject/Drain Joint/Bursa Intermediate Completed 11/30/2015 84279 Polysomnography Sleep Staging 4+ Parameters Completed Encounters Type Date Location Provider CPT E/M Dx Office Visit 08/03/2017 [facility]opedic Services Sera Rush 04708 S63.512D 8:15a Of [place] So Office Visit 07/24/2017 [place] [address] M72.2 11:00a [facility] [place] M67.01 M67.02 Office Visit 07/06/2017 8:00a [facility] Sera Rush 48962 M25.532 Of [place] [facility] S63.502A Office Visit 06/23/2017 9:00a Diet[place] [address] L30.9 Office Visit 06/23/2017 8:15a [facility] [place] [address] M25.532 [facility] S63.502D Office Visit 06/12/2017 10:30a [facility] [address] M72.2 C.M.A. M67.01 M67.02 Office Visit 06/11/2017 8:00a [facility] [place] [address] M25.532 C.M.A. S63.502A Office Visit 12/26/2016 11:30a [facility] [place] [address] M19.011 C.[facility]. M75.21 M25.541 Office Visit 11/11/2016 10:45a [facility] [place] [address] M19.011 C.M.A. M75.21 S46.011D Office Visit 10/24/2016 9:45a [facility] [place] [address] M19.011 C.M.A. M75.21 S46.011D Office Visit 09/09/2016 8:00a [facility] [place] [address] M19.011 C.M.A. M75.21 S46.011D Office Visit 07/31/2016 8:15a [facility] [place] [address] M19.011 C.M.A. M75.21 S46.011D Office Visit 07/11/2016 8:30a [facility] [place] [address] M19.011 C.M.A. M75.21 S46.011D Office Visit 06/10/2016 8:00a [facility] [place] [address] M19.011 C.M.A. M75.21 S46.011D Office Visit 04/07/2016 11:30a [facility] 07717 C.M.A. Office Visit 01/31/2016 8:30a [facility] [place] [address] M54.2 C.M.A. M54.12 M19.211 S46.011A S46.101A Office Visit 01/03/2016 8:30a Pul[place] [address] G47.33 [facility] E66.09 Office Visit 11/06/2015 2:00p Pulmonology [place] [address] G47.9 [facility] E66.09 Plan of Care Future Appointment(s):09/16/2017 8:45 am - Sera Rush M.D. at [facility]10/21/2017 8:00 am - Sera Rush M.D. at [facility]09/07/2017 - Sera Rush M.D.S63.512D Sprain of carpal joint of left wrist, subsequent encounterFollow up:6 weeks
--- OUTSIDE RECORDS SUMMARY | 2017-09-07 23:35 | XMS REPORT ---
:1965 External Reference #:[id number] Author Organization [facility] Address [address] [address] Phone [phone] Care Team Providers Name Role Phone Adry Puri MD Primary Care Physician Unavailable Payers Type Date Identification Numbers Payment Provider Subscriber Commercial Effective: Policy Number: Femi Avila 2017 [id number] Group Number: [id number] [address] PayID: [id number] [place] [address] Medigap Part B Expires: 2017 Policy Number: [id number] Medicaid Samantha Avila Group Name: 1 1 [address] PayID: [id number] [place] [address] Problems Date Description Provider Status Onset: 11/06/2015 [...] [address]: Isidro Rouse MD Acct: [id number] Unit: [id number] AGE: 51 Location: OR Re12/31/16 SEX: F Status: PALAK HAN SPEC: [id number] ROCIO: 12/31/16- SUBM DR: Isidro Rouse MD REQ: [id number] RECD: 12/31/16 STATUS: SOUT _ ORDERED: Decal, LEVEL 3 FINAL DIAGNOSIS Right distal clavicle, resection: -- Severe degenerative osteoarthritic changes. PRE-OPERATIVE DIAGNOSIS Painful right shoulder. GROSS DESCRIPTION The specimen is received in formalin labeled, Portion of Distal Clavicle Right, and consists of a 2.0 x 1.2 x 0.7 cm russell-red irregular focally cauterized bone fragment with a smooth margin of resection. Compensation And Benefits Advisor sections, one cassette following decalcification. MICROSCOPIC DESCRIPTION Signed (signature on file) Johan Juárez MD 1023 END OF REPORT * ML=Testing performed at Main Lab DEPARTMENT OF PATHOLOGY, [address] [place] [address] Johan Juárez M.D. Director [facility] # [id number] 2 [id number] 3 SEE RESULT BELOW Name: SAMANTHA AVILA : [address]: Isidro Rouse MD Acct: [id number] Unit: [id number] AGE: 50 [facility] SEX: F Status: REG [facility] SPEC: [id number] ROCIO: 03/10/16-[address]: Isidro Rouse MD REQ: [id number] RECD: 03/11/16 STATUS: SOUT _ ORDERED: LEVEL III COMMENTS: [id number] FINAL DIAGNOSIS Shoulder, right, shavings: -- Fragments [...] tissue fragments admixed with red-brown blood clot. Compensation And Benefits Advisor sections, one cassette. Signed (signature on file) Johan Juárez MD 1346 END OF REPORT * ML=Testing performed at Main Lab DEPARTMENT OF PATHOLOGY, [address] [place] [address] Johan Juárez M.D. Director [facility] # [id number] Procedures Date CPT Code Description Status 08/19/2017 59516 Short Arm Cast Application Completed 08/11/2017 15100 Carpectomy One Bone Completed 08/11/2017 10926 Carpectomy One Bone Completed 05/31/2017 Diabetic Foot Exam Completed 12/31/2016 62660 claviculectomy;partial Completed 12/31/2016 24613 claviculectomy;partial Completed 10/24/2016 23361 Inject/Drain Joint/Bursa Intermediate Completed 07/31/2016 05873 Inject/Drain Joint/Bursa Intermediate Completed 06/10/2016 47898 Inject/Drain Joint/Bursa Major Completed 03/10/2016 90449 Arthroscopy Shoulder,W/Rotator Cuff Repair Completed 03/10/2016 56949 Arthroscopy Shoulder,W/Rotator Cuff Repair Completed 03/10/2016 32443 Arthroscopy,Shoulder Decompression Of Subacromial Space Completed W/Acromio 03/10/2016 68860 Arthroscopy,Shoulder Decompression Of Subacromial Space Completed W/Acromio 03/10/2016 27079 Arthroscopy,Shoulder,Distal Claviculectomy Incl Dist Completed Articular SR 03/10/2016 23859 Arthroscopy,Shoulder,Distal Claviculectomy Incl Dist Completed Articular SR 03/10/2016 18578 Arthroscopy Shoulder Debridement Extensive Completed 03/10/2016 49856 Arthroscopy Shoulder Debridement Extensive Completed 03/10/2016 29410 Tenodesis Biceps Long Tendon Completed 03/10/2016 06219 Tenodesis Biceps Long Tendon Completed 01/31/2016 38373 Inject/Drain Joint/Bursa Intermediate Completed 11/30/2015 24460 Polysomnography Sleep Staging 4+ Parameters Completed Encounters Type Date Location Provider CPT E/M Dx Office Visit 08/03/2017 [facility] Sera Rush 21669 S63.512D 8:15a Of [place] So Office Visit 07/24/2017 [place] [address] M72.2 11:00a Of [place] M67.01 M67.02 Office Visit 07/06/2017 8:00a [facility] Sera Rush 25257 M25.532 Of [place] So S63.502A Office Visit 06/23/2017 9:00a Guest Services [place] [address] L30.9 Office Visit 06/23/2017 8:15a [facility] [place] [address] M25.532 C.M.A. S63.502D Office Visit 06/12/2017 10:30a [facility] [place] [address] M72.2 C.M.A. M67.01 M67.02 Office Visit 06/11/2017 8:00a [facility] [place] [address] M25.532 C.M.A. S63.502A Office Visit 12/26/2016 11:30a [facility] [place] [address] M19.011 C.M.A. M75.21 M25.541 Office Visit 11/11/2016 10:45a [facility] [place] [address] M19.011 C.M.A. M75.21 S46.011D Office Visit 10/24/2016 9:45a [facility] [place] [address] M19.011 C.M.A. M75.21 S46.011D Office Visit 09/09/2016 8:00a [facility] [place] [address] M19.011 C.M.A. M75.21 S46.011D Office Visit 07/31/2016 8:15a [facility] [place] [address] M19.011 C.M.A. M75.21 S46.011D Office Visit 07/11/2016 8:30a [facility] [place] [address] M19.011 C.M.A. M75.21 S46.011D Office Visit 06/10/2016 8:00a [facility] [place] [address] M19.011 C.M.A. M75.21 S46.011D Office Visit 04/07/2016 11:30a [facility] Of [facility] Clinical 55577 C.M.A. Office Visit 01/31/2016 8:30a [facility] [place] [address] M54.2 C.M.A. M54.12 M19.211 S46.011A S46.101A Office Visit 01/03/2016 8:30a Pulmonology [place] [address] G47.33 Services Of [facility] E66.09 Office Visit 11/06/2015 2:00p Pulmonology [place] [address] G47.9 Services Of [facility] E66.09 Plan of Care Future Appointment(s):10/21/2017 8:00 am - [facility] - Sera Rush M.D.S63.512D Sprain of carpal joint of left wrist, subsequent encounterFollow up:6 weeks
--- OUTSIDE RECORDS SUMMARY | 2017-09-07 23:36 | XMS REPORT ---
:1965 External Reference #:[id number] Author Organization [facility] Address [address] [address] Phone [phone] Care Team Providers Name Role Phone Adry Puri MD Primary Care Physician Unavailable Payers Type Date Identification Numbers Payment Provider Subscriber Commercial Effective: Policy Number: Femi Avila 2017 [id number] Group Number: [id number] [address] PayID: [id number] [place] [address] Medigap Part B Expires: 2017 Policy Number: [id number] Medicaid Samantha Avila Group Name: 1 1 [address] PayID: [id number] [place] [address] Problems Date Description Provider Status Onset: 11/06/2015 Disturbance in sleep behavior Kaya Stringer MD Active Onset: 11/06/2015 Obesity Kaya Stringer MD Active Onset: 01/03/2016 Obstructive sleep apnea syndrome Kaya Stringer MD Active Onset: 01/31/2016 Neck pain Isidor Rouse MD Active Onset: 01/31/2016 Brachial neuritis [...] Nasim Vital Signs Date Vital Result Comment 09/04/2017 Height 65 inches 5'5" Weight 205.00 [...] 3 finding 1 SEE RESULT BELOW Name: SAMANTHA AVILA : [address]: Isidro Rouse MD Acct: [id number] Unit: [id number] AGE: 51 Location: OR Re12/31/16 SEX: F Status: PALAK HAN SPEC: [id number] ROCIO: 12/31/16- SUBM DR: Isidro Rouse MD REQ: [id number] RECD: 12/31/16 STATUS: SOUT _ ORDERED: Decal, LEVEL 3 FINAL DIAGNOSIS Right distal clavicle, resection: -- Severe degenerative osteoarthritic changes. PRE-OPERATIVE DIAGNOSIS Painful right shoulder. GROSS DESCRIPTION The specimen is received in formalin labeled, Portion of Distal Clavicle Right, and consists of a 2.0 x 1.2 x 0.7 cm russell-red irregular focally cauterized bone fragment with a smooth margin of resection. Building Materials Sales Attendant sections, one cassette following decalcification. MICROSCOPIC DESCRIPTION Signed (signature on file) Johan Juárez MD 1023 END OF REPORT * ML=Testing performed at Main Lab DEPARTMENT OF PATHOLOGY, [address] [place] [address] Johan Juárez M.D. Director [facility] # [id number] 2 [id number] 3 SEE RESULT BELOW Name: SAMANTHA AVILA : [address]: Isidro Rouse MD Acct: [id number] Unit: [id number] AGE: 50 Location: [facility] Re03/10/16 SEX: F Status: REG [facility] SPEC: [id number] ROCIO: 03/10/16 [facility] DR: Isidro Rouse MD REQ: [id number] RECD: 03/11/16 STATUS: SOUT _ ORDERED: LEVEL III COMMENTS: [id number] FINAL DIAGNOSIS Shoulder, right, shavings: -- Fragments [...] tissue fragments admixed with red-brown blood clot. Building Materials Sales Attendant sections, one cassette. Signed (signature on file) Johan Juárez MD 1346 END OF REPORT * ML=Testing performed at Main Lab DEPARTMENT OF PATHOLOGY, [address] [place] [address] Johan Juárez M.D. Director [facility] # [id number] Procedures Date CPT Code Description Status 08/19/2017 46490 Short Arm Cast Application Completed 08/11/2017 29445 Carpectomy One Bone Completed 08/11/2017 09483 Carpectomy One Bone Completed 05/31/2017 Diabetic Foot Exam Completed 12/31/2016 14303 claviculectomy;partial Completed 12/31/2016 06366 claviculectomy;partial Completed 10/24/2016 08661 Inject/Drain Joint/Bursa Intermediate Completed 07/31/2016 40880 Inject/Drain Joint/Bursa Intermediate Completed 06/10/2016 78948 Inject/Drain Joint/Bursa Major Completed 03/10/2016 36727 Arthroscopy Shoulder,W/Rotator Cuff Repair Completed 03/10/2016 38998 Arthroscopy Shoulder,W/Rotator Cuff Repair Completed 03/10/2016 75929 Arthroscopy,Shoulder Decompression Of Subacromial Space Completed W/Acromio 03/10/2016 64484 Arthroscopy,Shoulder Decompression Of Subacromial Space Completed W/Acromio 03/10/2016 68744 Arthroscopy,Shoulder,Distal Claviculectomy Incl Dist Completed Articular SR 03/10/2016 34509 Arthroscopy,Shoulder,Distal Claviculectomy Incl Dist Completed Articular SR 03/10/2016 45668 Arthroscopy Shoulder Debridement Extensive Completed 03/10/2016 36739 Arthroscopy Shoulder Debridement Extensive Completed 03/10/2016 61086 Tenodesis Biceps Long Tendon Completed 03/10/2016 46358 Tenodesis Biceps Long Tendon Completed 01/31/2016 90622 Inject/Drain Joint/Bursa Intermediate Completed 11/30/2015 68710 Polysomnography Sleep Staging 4+ Parameters Completed Encounters Type Date Location Provider CPT E/M Dx Office Visit 08/03/2017 [facility] Sera Rush 15180 S63.512D 8:15a Of [place] Office Visit 07/24/2017 [place] [address] M72.2 11:00a Of [place] M67.01 M67.02 Office Visit 07/06/2017 8:00a [facility]opedic Services Sera Rush 01201 M25.532 Of [place] So S63.502A Office Visit 06/23/2017 9:00a [facility] [place] [address] L30.9 Office Visit 06/23/2017 8:15a [facility] [place] [address] M25.532 CDago S63.502D Office Visit 06/12/2017 10:30a [facility] [place] [address] M72.2 C.M.A. M67.01 M67.02 Office Visit 06/11/2017 8:00a [facility] [place] [address] M25.532 C.M.A. S63.502A Office Visit 12/26/2016 11:30a [facility] [place] [address] M19.011 C.M.A. M75.21 M25.541 Office Visit 11/11/2016 10:45a [facility] [place] [address] M19.011 C.M.A. M75.21 S46.011D Office Visit 10/24/2016 9:45a [facility] [place] [address] M19.011 C.M.A. M75.21 S46.011D Office Visit 09/09/2016 8:00a [facility] [place] [address] M19.011 C.M.A. M75.21 S46.011D Office Visit 07/31/2016 8:15a [facility] [place] [address] M19.011 C.M.A. M75.21 S46.011D Office Visit 07/11/2016 8:30a [facility] [place] [address] M19.011 C.M.A. M75.21 S46.011D Office Visit 06/10/2016 8:00a [facility] [place] [address] M19.011 C.M.A. M75.21 S46.011D Office Visit 04/07/2016 11:30a [facility] Of [facility] Clinical 19886 C.M.A. Office Visit 01/31/2016 8:30a [facility] [place] [address] M54.2 C.M.A. 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 at [facility] [place]
--- OUTSIDE RECORDS SUMMARY | 2017-09-07 23:36 | XMS REPORT ---
:1965 External Reference #:[id number] Author Organization [employer] Address [address] [address] Phone [phone] Care Team Providers Name Role Phone Adry Puri MD Primary Care Physician Unavailable Payers Type Date Identification Numbers Payment Provider Subscriber Commercial Effective: Policy Number: Femi Avila 2017 [id number] Group Number: [id number] [address] PayID: [id number] [place] [address] Medigap Part B Expires: 2017 Policy Number: [id number] Medicaid Samantha Avila Group Name: 1 1 [address] PayID: [id number] [place] [address] Problems Date Description Provider Status Onset: 11/06/2015 [...] Nasim Vital Signs Date Vital Result Comment 08/19/2017 Height 65 inches 5'5" Heart Rate [...] [address]: Isidro Rouse MD Acct: [id number] Unit: [id number] AGE: 51 Location: OR Re12/31/16 SEX: F Status: PALAK SUAZO SPEC: [id number] ROCIO: 12/31/16- [facility] DR: Isidro Rouse MD REQ: [id number] RECD: 12/31/16 STATUS: HAILEY _ ORDERED: Vanessa, LEVEL 3 FINAL DIAGNOSIS Right distal clavicle, resection: -- Severe degenerative osteoarthritic changes. PRE-OPERATIVE DIAGNOSIS Painful right shoulder. GROSS DESCRIPTION The specimen is received in formalin labeled, Portion of Distal Clavicle Right, and consists of a 2.0 x 1.2 x 0.7 cm russell-red irregular focally cauterized bone fragment with a smooth margin of resection. [employer] Plans Intelligence Officer Chief sections, one cassette following decalcification. MICROSCOPIC DESCRIPTION Signed (signature on file) Johan Juárez MD 1023 END OF REPORT * ML=Testing performed at Main Lab DEPARTMENT OF PATHOLOGY, [address] [place] [address] Johan Juárez M.D. Director [facility] # [id number] 2 [id number] SEE RESULT BELOW Name: AVILAEDILNIA : [address]: Isidro Rouse MD Acct: [id number] Unit: [id number] AGE: 50 Location: [email or web address] Re03/10/16 SEX: F Status: REG [facility] SPEC: [id number] ROCIO: 03/10/16-[address] [facility] [address]: Isidro Rouse MD REQ: [id number] RECD: 03/11/16 STATUS: SOUT _ ORDERED: LEVEL III COMMENTS: [id number] FINAL DIAGNOSIS Shoulder, right, shavings: -- Fragments [...] tissue fragments admixed with red-brown blood clot. [employer]oc Plans Intelligence Officer Chief sections, one cassette. Signed (signature on file) Johan Juárez MD 1346 END OF REPORT * ML=Testing performed at Main Lab DEPARTMENT OF PATHOLOGY, [address] [place] [address] Johan Juárez M.D. Director [facility] # [id number] Procedures Date CPT Code Description Status 08/19/2017 45020 Short Arm Cast Application Completed 08/11/2017 63325 Carpectomy One Bone Completed 08/11/2017 93457 Carpectomy One Bone Completed 05/31/2017 Diabetic Foot Exam Completed 12/31/2016 12537 claviculectomy;partial Completed 12/31/2016 30229 claviculectomy;partial Completed 10/24/201641993 Inject/Drain Joint/Bursa Intermediate Completed 07/31/2016 Inject/Drain Joint/Bursa Intermediate Completed 06/10/2016 Inject/Drain Joint/Bursa Major Completed 03/10/2016 09633 Arthroscopy Shoulder,W/Rotator Cuff Repair Completed 03/10/2016 75539 Arthroscopy Shoulder,W/Rotator Cuff Repair Completed 03/10/2016 31782 Arthroscopy,Shoulder Decompression Of Subacromial Space Completed W/Acromio 03/10/2016 18485 Arthroscopy,Shoulder Decompression Of Subacromial Space Completed W/Acromio 03/10/2016 10152 Arthroscopy,Shoulder,Distal Claviculectomy Incl Dist Completed Articular SR 03/10/2016 74547 Arthroscopy,Shoulder,Distal Claviculectomy Incl Dist Completed Articular SR 03/10/2016 81930 Arthroscopy Shoulder Debridement Extensive Completed 03/10/2016 72605 Arthroscopy Shoulder Debridement Extensive Completed 03/10/2016 32488 Tenodesis Biceps Long Tendon Completed 03/10/2016 57761 Tenodesis Biceps Long Tendon Completed 01/31/2016 34603 Inject/Drain Joint/Bursa Intermediate Completed 11/30/2015 90960 Polysomnography Sleep Staging 4+ Parameters Completed Encounters Type Date Location Provider CPT E/M Dx Office Visit 08/03/2017 [facility] Sera Rush 10790 S63.512D 8:15a Of [place] Office Visit 07/24/2017 [place] [address] M72.2 11:00a Of [place] M67.01 M67.02 Office Visit 07/06/2017 8:00a Orthopedic Services Sera Rush 10925 M25.532 Of [place] So S63.502A Office Visit 06/23/2017 9:00a Window/Distribution [place] [address] L30.9 Office Visit 06/23/2017 8:15a [facility] [place] [address] M25.532 C.M.ADayanara S63.502D Office Visit 06/12/2017 10:30a [facility] [place] [address] M72.2 C.M.ADayanara M67.01 M67.02 Office Visit 06/11/2017 8:00a [facility] [place] [address] M25.532 C.M.ADayanara S63.502A Office Visit 12/26/2016 11:30a [facility] [place] [address] M19.011 C.M.ADayanara M75.21 M25.541 Office Visit 11/11/2016 10:45a [facility] [place] [address] M19.011 C.M.A. M75.21 S46.011D Office Visit 10/24/2016 9:45a [facility] [place] [address] M19.011 C.M.A. M75.21 S46.011D Office Visit 09/09/2016 8:00a [facility] [place] [address] M19.011 C.M.A. M75.21 S46.011D Office Visit 07/31/2016 8:15a [facility] [place] [address] M19.011 C.M.A. M75.21 S46.011D Office Visit 07/11/2016 8:30a [facility] [place] [address] M19.011 C.M.A. M75.21 S46.011D Office Visit 06/10/2016 8:00a [facility] [place] [address] M19.011 C.M.A. M75.21 S46.011D Office Visit 04/07/2016 11:30a Orthopedic Services Of [facility] Clinical 18867 C.M.A. Office Visit 01/31/2016 8:30a [facility] [place] [address] M54.2 C.M.A. 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 at [facility]opedic Services Of [facility].08/19/2017 - Clarita Bruce, [facility]-CS63.512D Sprain of carpal joint of left wrist, subsequent encounterNew Xrays:Wrist Left 2 VWSFollow up: Follow up: 3 weeks
--- OUTSIDE RECORDS SUMMARY | 2017-09-07 23:36 | XMS REPORT ---
:1965 External Reference #:[id number] Author Organization [facility] Address [address] [address] Phone [phone] Care Team Providers Name Role Phone Adry Puri MD Primary Care Physician Unavailable Payers Type Date Identification Numbers Payment Provider Subscriber Commercial Effective: Policy Number: Femi Avila 2017 [id number] Group Number: [id number] [address] PayID: [id number] [place] [address] Medigap Part B Expires: 2017 Policy Number: [id number] Medicaid Samantha Avila Group Name: 1 1 [address] PayID: [id number] [place] [address] Problems Date Description Provider Status Onset: 11/06/2015 [...] Nasim Vital Signs Date Vital Result Comment 08/28/2017 Height 65 inches 5'5" Weight 207.00 [...] 3 finding 1 SEE RESULT BELOW Name: AUSTINSAMANTHA : [address]: Isidro Rouse MD Acct: [id number] Unit: [id number] AGE: 51 Location: OR Re12/31/16 SEX: F Status: [facility] SPEC: [id number] ROCIO: 12/31/16- SUBM DR: Isidro Rouse MD REQ: [id number] RECD: 12/31/1653 STATUS: SOUT _ ORDERED: [facility], LEVEL 3 FINAL DIAGNOSIS Right distal clavicle, resection: -- Severe degenerative osteoarthritic changes. PRE-OPERATIVE DIAGNOSIS Painful right shoulder. GROSS DESCRIPTION The specimen is received in formalin labeled, Portion of Distal Clavicle Right, and consists of a 2.0 x 1.2 x 0.7 cm russlel-red irregular focally cauterized bone fragment with a smooth margin of resection. Vaccine Customer Representative sections, one cassette following decalcification. MICROSCOPIC DESCRIPTION Signed (signature on file) Johan Juárez MD 1023 END OF REPORT * ML=Testing performed at Main Lab DEPARTMENT OF PATHOLOGY, [address] [place] [address] Johan Juárez M.D. Director [facility] # [id number] 2 [id number] 3 SEE RESULT BELOW Name: SAMANTHA AVILA : [address]: Isidro Rouse MD Acct: [id number] Unit: [id number] AGE: 50 Location: [facility] Re03/10/16 SEX: F Status: [facility] SPEC: [id number] ROCIO: 03/10/16-[address] [facility] [address]: Isidro Rouse MD REQ: [id number] RECD: 03/11/16 STATUS: SOUT _ ORDERED: LEVEL III COMMENTS: [id number] FINAL DIAGNOSIS Shoulder, right, shavings: -- Fragments [...] tissue fragments admixed with red-brown blood clot. Vaccine Customer Representative sections, one cassette. Signed (signature on file) Johan Juárez MD 1346 END OF REPORT * ML=Testing performed at Main Lab DEPARTMENT OF PATHOLOGY, [address] [place] [address] Johan uJárez M.D. Director [facility] # [id number] Procedures Date CPT Code Description Status 08/19/2017 36848 Short Arm Cast Application Completed 08/11/2017 62750 Carpectomy One Bone Completed 08/11/2017 97357 Carpectomy One Bone Completed 05/31/2017 Diabetic Foot Exam Completed 12/31/2016 73097 claviculectomy;partial Completed 12/31/2016 74086 claviculectomy;partial Completed 10/24/2016 Inject/Drain Joint/Bursa Intermediate Completed 07/31/2016 Inject/Drain Joint/Bursa Intermediate Completed 06/10/2016 67396 Inject/Drain Joint/Bursa Major Completed 03/10/2016 50689 Arthroscopy Shoulder,W/Rotator Cuff Repair Completed 03/10/2016 93099 Arthroscopy Shoulder,W/Rotator Cuff Repair Completed 03/10/2016 79839 Arthroscopy,Shoulder Decompression Of Subacromial Space Completed W/Acromio 03/10/2016 39452 Arthroscopy,Shoulder Decompression Of Subacromial Space Completed W/Acromio 03/10/2016 15060 Arthroscopy,Shoulder,Distal Claviculectomy Incl Dist Completed Articular SR 03/10/2016 74572 Arthroscopy,Shoulder,Distal Claviculectomy Incl Dist Completed Articular SR 03/10/2016 89403 Arthroscopy Shoulder Debridement Extensive Completed 03/10/2016 62718 Arthroscopy Shoulder Debridement Extensive Completed 03/10/2016 92033 Tenodesis Biceps Long Tendon Completed 03/10/2016 55508 Tenodesis Biceps Long Tendon Completed 01/31/2016 16974 Inject/Drain Joint/Bursa Intermediate Completed 11/30/2015 33795 Polysomnography Sleep Staging 4+ Parameters Completed Encounters Type Date Location Provider CPT E/M Dx Office Visit 08/03/2017 [facility] Sera Rush 82482 S63.512D 8:15a Of [facility] Office Visit 07/24/2017 [place] [address] M72.2 11:00a Of [facility] M67.01 M67.02 Office Visit 07/06/2017 8:00a [facility] Sera Rush 51919 M25.532 Of [place] [facility] S63.502A Office Visit 06/23/2017 9:00a [facility] [place] [address] L30.9 Office Visit 06/23/2017 8:15a [facility] [place] [address] M25.532 [facility] S63.502D Office Visit 06/12/2017 10:30a [facility] [place] [address] M72.2 [facility] M67.01 M67.02 Office Visit 06/11/2017 8:00a [facility] [place] [address] M25.532 [facility] S63.502A Office Visit 12/26/2016 11:30a [facility] [place] [address] M19.011 [facility] M75.21 M25.541 Office Visit 11/11/2016 10:45a [facility] [place] [address] M19.011 [facility] M75.21 S46.011D Office Visit 10/24/2016 9:45a [facility] [place] [address] M19.011 [facility] M75.21 S46.011D Office Visit 09/09/2016 8:00a [facility] [place] [address] M19.011 [facility] M75.21 S46.011D Office Visit 07/31/2016 8:15a [facility] [place] [address] M19.011 [facility] M75.21 S46.011D Office Visit 07/11/2016 8:30a [facility] [place] [address] M19.011 [facility] M75.21 S46.011D Office Visit 06/10/2016 8:00a [facility] [place] [address] M19.011 [facility] M75.21 S46.011D Office Visit 04/07/2016 11:30a [facility] 7[address] [facility] Office Visit 01/31/2016 8:30a [facility] [place] [address] M54.2 [facility] M54.12 M19.211 S46.011A S46.101A Office Visit 01/03/2016 8:30a [facility] [address] G47.33 Services [facility] E66.09 Office Visit 11/06/2015 2:00p [facility] [address] G47.9 Services [facility] E66.09 Plan of Care Future Appointment(s):09/09/2017 8:00 am - Sera Rush M.D. at [facility]
--- NOTE | 2017-09-07 23:38 | ED ---
Upper Extremity Pain - HPI Summary HPI Summary: 52F presents with pain from cast on her left arm. She states the cast is too tight. She denies any numbness or tingling. She states on August 11 she has surgery by Dr. rush for the scaphoid lunate ligament tear. She states that her rush placed 5 rods in the area. She states a week ago she jammed her left thumb. She states since then she has had pain over the radial aspect of his left wrist. She states she saw Dr. rush today and Dr. rush removed one of the pins. She states that they placed a cast on the area and she has been having pain ever since as it it too tight over the incision even though there is a window there. She states the cast is rubbing on her new incision. She states she would like that the cast removed. She denies any extreme pain. States there is little itchy. - History of Current Complaint Chief Complaint: EDExtremityUpper Stated Complaint: LT WRIST INJURY/FOLLOWING SURGERY Time Seen by Provider: 09/07/17 23:15 - Allergies/Home Medications Allergies/Adverse Reactions: Allergies Allergy/AdvReac Type Severity Reaction Status Date / Time acetaminophen [From Percocet] Allergy Nausea Verified 09/08/17 00:45 naproxen Allergy Rash Verified 09/08/17 00:45 oxycodone [From Percocet] Allergy Nausea Verified 09/08/17 00:45 SEAFOOD Allergy Severe Rash And Uncoded 09/08/17 00:45 Itching TRAMADOL Allergy Severe Altered Uncoded 09/08/17 00:45 Mental Status ENVIRONMENTAL Allergy Intermediate Eyes Uncoded 09/08/17 00:45 Itchy/Swollen/Red/Watery LATEX Allergy Intermediate Rash And Uncoded 09/08/17 00:45 Itching PMH/Surg Hx/FS Hx/Imm Hx Endocrine/Hematology History: Denies: Hx Diabetes, Hx Systemic Lupus Erythematosus Cardiovascular History: Denies: Hx Congestive Heart Failure, Hx Hypertension, Hx Pacemaker/ICD, Other Cardiovascular Problems/Disorders Respiratory History: Reports: Hx Asthma - USES INHALER, Hx Sleep Apnea, Other Respiratory Problems/Disorders - HAS ALLERGY SHOTS BY DR BRITO Q WEEK ON MONDAYS GI History: Reports: Hx Gastroesophageal Reflux Disease - R/T FOOD INTAKE, Hx Ulcer - HEALED WELL History: Reports: Hx Kidney Stones - age 14 Denies: Hx Dialysis, Hx Renal Disease Musculoskeletal History: Reports: Other Musculoskeletal History - plantar fasciitis tony legs Denies: Hx Arthritis, Hx Rheumatoid Arthritis Sensory History: Reports: Hx Contacts or Glasses - glasses Denies: Hx Hearing Aid Opthamlomology History: Reports: Hx Contacts or Glasses - glasses Neurological History: Reports: Hx Migraine - rare Denies: Other Neuro Impairments/Disorders Psychiatric History: Denies: Hx Panic Disorder - Cancer History Hx Chemotherapy: No - Surgical History Surgery Procedure, Year, and Place: 08/11/17 - LT WRIST REPAIR W/ INTERNAL SCREW - NO EXTERNAL REID. TUBAL LIGATION 1987. RIGHT shoulder REPAIR 02/2016. Fatty tissue removed x2 around same side back of shoulder, 02/2016 also buttock -back of leg. 2017, right clavicle, cmc Hx Anesthesia Reactions: No - Immunization History Date of Tetanus Vaccine: unknown Date of Influenza Vaccine: has not received Infectious Disease History: No Infectious Disease History: Denies: Traveled Outside the [place] in Last 30 Days - Family History Known Family History: Positive: Cardiac Disease - father, brother, mother - [place], Diabetes - Social History Alcohol Use: None Substance Use Type: Reports: None Hx Tobacco Use: Yes - quit 2002 Smoking Status (MU): Former Smoker Amount Used/How Often: pack a day for 10 yrs Review of Systems Negative: Fever Negative: Chest Pain Negative: Shortness Of Breath Positive: Other - cast discomfort All Other Systems Reviewed And Are Negative: Yes Physical Exam Triage Information Reviewed: Yes Vital Signs On Initial Exam: Initial Vitals Temp Pulse Resp BP Pulse Ox 99.1 F 68 18 135/69 97 09/07/17 23:06 09/07/17 23:06 09/07/17 23:06 09/07/17 23:06 09/07/17 23:06 Vital Signs Reviewed: Yes Appearance: Positive: Well-Appearing Skin: Positive: Warm, Dry Head/Face: Positive: Normal Head/Face Inspection Eyes: Positive: Normal, Conjunctiva Clear Respiratory/Lung Sounds: Positive: Clear to Auscultation, Breath Sounds Present Cardiovascular: Positive: Normal, RRR Musculoskeletal: Positive: Strength/ROM Intact - Left index through pinky finger , Edema Left - Finger, Other - radial gutter cast intact on left wrist with the window near left radius. Sensation grossly intact. Capillary less than 2 seconds. Able to wiggle fingers. Tenderness over 1 cm incision but no edema noted to surrounding tissue at left radius. Neurological: Positive: Normal Psychiatric: Positive: Normal Diagnostics - Vital Signs Vital Signs Temp Pulse Resp BP Pulse Ox 09/07/17 23:06 99.1 F 68 18 135/69 97 - Laboratory Lab Statement: Any lab studies that have been ordered have been reviewed, and results considered in the medical decision making process. Course/Dx - Course Course Of Treatment: 52F presents with pain from cast on her left arm. She states the cast is too tight. She denies any numbness or tingling. She states on August 11 she has surgery by Dr. rush for the scaphoid lunate ligament tear. She states that her rush placed 5 rods in the area. She states a week ago she jammed her left thumb. She states since then she has had pain over the radial aspect of his left wrist. She states she saw Dr. rush today and Dr. rush removed one of the pins. She states that they placed a cast on the area and she has been having pain ever since as it it too tight over the incision even though there is a window there. She states the cast is rubbing on her new incision. She states she would like that the cast removed. She denies any extreme pain. States there is little itchy. On exam has radial gutter cast on left wrist. Neurovascular intact. Do not suspect compartment syndrome. Discussed with Dr. Owusu and said that can split the cast. split the cast and patient had pain relief. Told to follow-up with orthopedist this week. Patient understands agrees with plan. - Diagnoses Differential Diagnosis/HQI/PQRI: Positive: Other - Compartment syndrome, cast discomfort, edema Provider Diagnoses: Cast discomfort Discharge - Sign-Out/Discharge Documenting (check all that apply): Discharge - Discharge Plan Condition: Good Disposition: HOME Patient Education Materials: R.I.C.E. Treatment (ED) Referrals: Adry Puri MD [Primary Care Provider] - Sera Rush MD [Medical Doctor] - Additional Instructions: elevate area Ice Follow up with ortho later this week Return to ED if develop any new or worsening symptoms - Billing Disposition and Condition Condition: GOOD Disposition: HOME
[2017-09-08 01:04] VITALS: BP 127/84
== END 2017-09-08 01:04 | disposition home or self-care (01) ==
LOC: ED 23:04
DX: Z47.89 Encounter for other orthopedic aftercare (principal); J45.909 Unspecified asthma, uncomplicated; K21.9 Gastro-esophageal reflux disease without esophagitis; Z87.891 Personal history of nicotine dependence
CPT/HCPCS: 99282

== ENCOUNTER 2019-04-30 03:29 | Emergency (ER) | payer BC, MEDICAID ==
[2019-04-30 03:46] VITALS: BP 125/70
[2019-04-30 04:06] LABS: ABS Basophils 0.1 10^3/ul (0-0.2); ABS Eosinophils 0.1 10^3/ul (0-0.6); ABS Lymphocytes 1.6 10^3/ul (1.0-4.8); ABS Monocytes 0.2 10^3/ul (0-0.8); ABS Neutrophils 9.1 10^3/ul (1.5-7.7); Eosinophil % 0.6 %; Hematocrit 40 % (35-47); Hemoglobin 13.2 g/dL (12.0-16.0); Lymphocyte % 14.7 %; Mean Corpuscular HGB Conc 33 g/dL (31-36); Mean Corpuscular Hemoglobin 30 pg (27-31); Mean Corpuscular Volume 89 fL (80-97); Mean Platelet Volume 7.3 fL (7.4-10.4); Platelet Count 446 10^3/uL (150-450); Red Blood Count 4.42 10^6 /uL (3.70-4.87); Red Cell Distribution Width 13 % (10-15); White Blood Count 11.1 10^3/uL (3.5-10.8)
[2019-04-30 04:11] LABS: INR 0.95 (0.82-1.09)
[2019-04-30 04:25] LABS: Albumin/Globulin Ratio 1.3 (1-3); BUN/Creatinine Ratio 14.5 (8-20); Calcium 9.6 mg/dL (8.6-10.3); EGFR African American 121.8 (>60); EGFR Non-African American 100.7 (>60); Globulin 3.2 g/dL (2-4); Potassium 3.9 mmol/L (3.5-5.0); Total Bilirubin 0.7 mg/dL (0.2-1.0); Total Protein 7.2 g/dL (6.4-8.9)
[2019-04-30 04:29] LABS: Troponin I 0.01 ng/mL (<0.03)
== END 2019-04-30 05:25 | disposition left against medical advice (07) ==
LOC: ED 03:29
DX: Z53.21 Procedure and treatment not carried out due to patient leaving prior to being seen by health care provider (principal); R07.9 Chest pain, unspecified
CPT/HCPCS: 36415; 80053; 84484; 85025; 85610; 93005; 99281

== ENCOUNTER 2019-08-04 04:08 | Emergency (ER) | payer BC, MEDICAID ==
[2019-08-04 04:15] VITALS: BP 153/100
--- OUTSIDE RECORDS SUMMARY | 2019-08-04 04:22 | XMS REPORT | Continuity of Care Document ---
:1965 External Reference #:[id number] Author Name Jaquan Fishman M.D. Address [address] [place] [address] Care Team Providers Name Role Phone Adry Puri M.D. Care Team Information Demand Manager [phone] Problems Active Problems Provider Date Body mass index 30+ - obesity Jaquan Fishman M.D. Onset: 08/27/2015 Immunization Jaquan Fishman M.D. Onset: 08/27/2015 Allergic rhinitis due to pollen Jaquan Fishman M.D. Onset: 08/27/2015 Asthma without status asthmaticus Jaquan Fishman M.D. Onset: 08/27/2015 Allergic rhinitis due to animals COLLEEN Saavedra Onset: 09/24/2015 Allergic rhinitis COLLEEN Saavedra Onset: 09/24/2015 Uncomplicated moderate persistent asthma COLLEEN Saavedra Onset: 09/24/2015 Uncomplicated moderate persistent asthma COLLEEN Gambino Onset: 2017 Social History Type Date Description Comments Sex Unknown ETOH Use Denies alcohol use Recreational Drug Use Denies Drug Use Tobacco Use Start: Unknown Patient has never smoked Allergies, Adverse Reactions, Alerts Active Allergies Reaction Severity Comments Date Naproxen Urticaria 08/27/2015 Medications Active Medications SIG Qnty Indications Ordering Date Provider Dulera Take 2 Puffs Twice 13units Jennifer 06/09/2016 200-5mcg/Act A Day COLLEEN Parks Aerosol Optichamber Halima use with inhalers 1units Guillermina Hanson 12/28/2015 Judah Dyer Device Nebulizer to be use for 1units J45.998 Jaquan Fishman, 08/27/2015 Misc breathing Judah treatments Ventolin HFA Take 2 Puffs Every 18units Jazzmine Carltoncourtney, 08/27/2015 4 Hours as Needed JOB LITHOGRAPHER-C 108(90Base) mcg/Act Aerosol Multi For Her Unknown Tablets Vitamin D-1000 Unknown Maximum Strength 1000Unit Tablets Albuterol Sulfate Inhale The 75units J45.40 Jazzminerandell Ledbetter, Contents Of 1 Vial JOB LITHOGRAPHER-C (2.5mg/3ML) 0.083% Via Nebulizer Nebulizer Every 4-6 HRS as Needed For Cough,Shortness Of Breath Zocor daily Unknown 20mg Tablets Medications Administered in Office Medication SIG Qnty Indications Ordering Provider Date Injection Allergy Injection 09/07/2017 Injection Injection Allergy Injection 09/04/2017 Injection Injection Allergy Injection 08/24/2017 Injection Injection Allergy Injection 08/19/2017 Injection Injection Allergy Injection 08/12/2017 Injection Injection Allergy Injection 08/03/2017 Injection Injection Allergy Injection 07/27/2017 Injection Injection Allergy Injection 07/20/2017 Injection Injection Allergy Injection 07/13/2017 Injection Injection Allergy Injection 07/06/2017 Injection Injection Allergy Injection 06/29/2017 Injection Injection Allergy Injection 06/22/2017 Injection Injection Allergy Injection 06/15/2017 Injection Injection Jaquan Fishman M.D. 06/08/2017 Injection Injection Allergy Injection 06/08/2017 Injection Injection Allergy Injection 05/29/2017 Injection Injection Allergy Injection 02/23/2017 Injection Injection Allergy Injection 02/16/2017 Injection Injection Allergy Injection 02/09/2017 Injection Injection Jaquan Fishman M.D. 02/02/2017 Injection Injection Allergy Injection 02/02/2017 Injection Injection Allergy Injection 01/28/2017 Injection Injection Allergy Injection 01/19/2017 Injection Injection Allergy Injection 01/12/2017 Injection Injection Allergy Injection 01/05/2017 Injection Injection Allergy Injection 12/29/2016 Injection Injection Allergy Injection 12/22/2016 Injection Injection Allergy Injection 11/12/2016 Injection Injection Allergy Injection 11/03/2016 Injection Injection Allergy Injection 10/23/2016 Injection Injection Allergy Injection 10/13/2016 Injection Injection Allergy Injection 10/06/2016 Injection Injection Allergy Injection 09/29/2016 Injection Injection Allergy Injection 09/22/2016 Injection Injection Allergy Injection 09/15/2016 Injection Injection Allergy Injection 09/08/2016 Injection Injection Allergy Injection 09/01/2016 Injection Injection Allergy Injection 08/18/2016 Injection Injection Allergy Injection 08/11/2016 Injection Injection Allergy Injection 08/04/2016 Injection Injection Allergy Injection 07/28/2016 Injection Injection Allergy Injection 07/07/2016 Injection Injection Allergy Injection 06/30/2016 Injection Injection Allergy Injection 06/26/2016 Injection Injection Allergy Injection 06/19/2016 Injection Immunizations Description No Information Available Vital Signs Date Vital Result Comment 07/18/2019 11:27am Height 65 inches 5'5" Weight 228.00 lb Weight 103.421 kg Respiratory Rate 20 /min Heart Rate 77 /min O2 % BldC Oximetry 95 % BP Systolic 138 mmHg BP Diastolic 77 mmHg Asthma Control Test 13 Fractional Exhaled Nitric Oxide 17 BMI (Body Mass Index) 37.9 kg/m2 06/12/2017 8:46am Height 65 inches 5'5" Weight 205.00 lb Weight 92.988 kg Respiratory Rate 18 /min Heart Rate 78 /min O2 % BldC Oximetry 97 % BP Systolic 121 mmHg BP Diastolic 79 mmHg Asthma Control Test 23 BMI (Body Mass Index) 34.1 kg/m2 Results Description No Information Available Procedures Description No Information Available Medical Devices Description No Information Available Encounters Type Date Location Provider Dx Diagnosis Office Visit 07/18/2019 11:40a Luis Fishman M.D. J30.1 Allergic rhinitis due to pollen J45.40 Moderate persistent asthma, uncomplicated Assessments Date Code Description Provider 07/18/2019 J30.1 Allergic rhinitis due to pollen Jaquan Fishman M.D. 07/18/2019 J45.40 Moderate persistent asthma, uncomplicated Jaquan Fishman M.D. Plan of Treatment Future Appointment(s):11/07/2019 11:20 am - Jaquan Fishman M.D. at [id number] - Jaquan Fishman M.D.J30.1 Allergic rhinitis due to pollenRecommendations: she wants to start the shots flzayY26.40 Moderate persistent asthma, uncomplicatedFollow up:follow up in OctoberRecommendations:continue with Dulera 2 puff every 12 hour ventolin as needed for cough wheezing or chest tightnessevery 4-6 hour she wants to start the Immunotherapy back again Functional Status Description No Information Available Mental Status Description No Information Available Referrals Description No Information Available
--- OUTSIDE RECORDS SUMMARY | 2019-08-04 04:22 | XMS REPORT | Summary of Care ---
:1965 Author Organization Formerly [facility], [facility] Address [address] [address] Care Team Providers Name Role Phone iCsco Merlos MD Primary Care Provider Reason for Referral (Routine) Status Reason Specialty Diagnoses / Referred By Referred To Procedures Contact Contact Pending Review Nutrition Diagnoses Prediabetes Cisco Mrelos MD [address] [place] [address] Reason for Visit Reason Comments Emergency Room Visit Follow Up Encounter Details Date Type Department Care Team Description 07/04/2019 Office Visit [facility] Chelita Influenza vaccination declined - VIS already given (Primary Dx); [facility] MD Cisco Mild persistent asthma without complication; [address] [facility]; [place] [address] Need for prophylactic vaccination against Streptococcus pneumoniae ( pneumococcus); [place] [address] Menopausal state; [phone] Immunization not carried out because of patient refusal; (Fax) Mild persistent asthma, uncomplicated; Prediabetes; Menopausal and female climacteric states; Encounter for immunization Allergies Active Allergy Reactions Severity Noted Date Comments Fish Swelling, Respiratory High 03/28/2019 All type of sea food Distress, Difficulty Swallowing Latex Rash High 03/28/2019 Atorvastatin Other Medium 03/28/2019 Myalgias and muscle stiffness Naproxen 04/01/2019 Shrimp Rash, Swelling, High 03/28/2019 All type of sea food Respiratory Distress, Difficulty Swallowing documented as of this encounter (statuses as of 07/05/2019) Medications NOTE: Medications may not be up to date as of this document. Always verify current medication with the patient. Medication Sig Dispensed Refills Start End Date Status Date dicyclomine 10 MG As prescribed 0 Active Oral capsule elsewhere 9 hydrocortisone 2.5 As prescribed 0 Active % Apply externally elsewhere 9 lotion Omeprazole 20 MG As prescribed 0 Active Oral CAPSULE elsewhere 9 DELAYED RELEASE HYDROCORTISONE, Apply to 1 Tube 1 Active RECTAL, (ANUSOL-HC) affected area 9 2.5 % Rectal twice a day for CreamIndications: not more than Hemorrhoids, 2-4 weeks unspecified hemorrhoid type Simvastatin 20 MG Take ONE tablet 90 tablet 1 09/30/19 Active Oral (20 mg total) 9 20 TabIndications: by mouth Other nightly hyperlipidemia benzonatate 100 MG As prescribed 0 Active Oral capsule elsewhere 0 FLUTICASONE As prescribed 0 Active PROPIONATE, NASAL, elsewhere 0 50 MCG/ACT Nasal Suspension Mometasone Inhale TWO 3 Inhaler 1 12/31/19 Active Furo-Formoterol Fum puffs (400 mcg 0 20 (DULERA) 200-5 total) 2 (two) MCG/ACT Inhalation times a day As AerosolIndications: prescribed Mild persistent elsewhere asthma without complication Montelukast Sodium Take ONE tablet 90 tablet 1 12/31/19 Active 10 MG Oral (10 mg total) 0 20 TabIndications: by mouth Mild persistent nightly As asthma without prescribed complication elsewhere ALBUTEROL SULFATE Inhale TWO 2 Inhaler 3 Active (PROAIR HFA) 108 puffs (216 mcg 0 (90 Base) MCG/ACT total) every Inhalation Aero 4-6 (four-six) SolnIndications: hours as needed Mild persistent for cough or asthma without shortness of complication breath As prescribed elsewhere metFORMIN HCl 500 Take ONE tablet 90 tablet 0 10/02/19 Active MG Oral (500 mg total) 0 20 TabIndications: by mouth daily Prediabetes PROAIR HFA 108 (90 As prescribed 0 07/04/19 Discontinued Base) MCG/ACT elsewhere 9 20 (Reorder) Inhalation Aero Soln Budesonide-Formoter Inhale TWO 1 Inhaler 2 07/04/19 Discontinued ol Fumarate puffs (320 mcg 0 20 (Alternate (SYMBICORT) 160-4.5 total) 2 (two) therapy) MCG/ACT Inhalation times a day AerosolIndications: Moderate persistent asthma without complication Azithromycin 500 MG As prescribed 0 07/04/19 Discontinued Oral Tab elsewhere 9 20 (Therapy completed) DULERA 200-5 Inhale 2 puffs 0 07/04/19 Discontinued MCG/ACT Inhalation 2 (two) times a 0 20 (Reorder) Aerosol day As prescribed elsewhere Montelukast Sodium As prescribed 0 07/04/19 Discontinued 10 MG Oral Tab elsewhere 9 20 (Reorder) documented as of this encounter (statuses as of 07/05/2019) Active Problems Problem Noted Date Prediabetes 03/30/2019 Routine adult health maintenance 03/28/2019 Other hyperlipidemia 03/28/2019 Overview: 03/28/19 recently started zocor per patient, reports myalgias with atorvastatin Asthma 03/28/2019 Overview: 07/04/2019 : went to ER for cough, was told it was not asthma, rare nocturnal cough, allergies are trigger -- supposed to see 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 technician and get allergy shots , has been given prednisone twice since March 2019 03/28/19 no history of intubation , went to ER last year and was given steroids Environmental allergies 03/28/2019 Lipoma 03/28/2019 Menopausal state 03/28/2019 Overview: 07/04/2019 Declines medication for hot flashes today Sleep apnea 03/28/2019 documented as of this encounter (statuses as of 07/05/2019) Immunizations Name Administration Dates Next Due Pneumococcal polysaccharide vaccine (PPSV23) 07/04/2019 Tdap 03/28/2019 documented as of this encounter Social History Tobacco Use Types Packs/Day Years Used Date Never Smoker Smokeless Tobacco: Never Used Alcohol Use Drinks/Week oz/Week Comments Never Alcohol Habits Answer Date Recorded How often do you have a drink containing alcohol? Never 03/28/2019 How many drinks containing alcohol do you have on a typical Not asked day when you are drinking? How often do you have six or more drinks on one occasion? Never 03/28/2019 Sex Assigned at Date Recorded Female 03/28/2019 10:22 AM EST Job Start Date Occupation Industry Not on file Not on file Not on file Travel History Travel Start Travel End No recent travel history available. documented as of this encounter Last Filed Vital Signs Vital Sign Reading Time Taken Comments Blood Pressure 135/82 07/04/2019 8:43 AM EST Pulse 67 07/04/2019 8:43 AM EST Temperature 36.7 07/04/2019 8:43 AM EST C (98 F) Respiratory Rate - - Oxygen Saturation 96% 07/04/2019 8:43 AM EST Inhaled Oxygen Concentration - - Weight 102.5 kg (226 lb) 07/04/2019 8:43 AM EST Height 165.1 cm (5' 5") 07/04/2019 8:43 AM EST Body Mass Index 37.61 07/04/2019 8:43 AM EST documented in this encounter Patient Instructions Patient InstructionsCisco Merlos MD - 07/04/2019 8:30 AM EST Thinking of going to the Emergency Room (ER)? For most health problems, you should see your primary care provider or mental health provider at your [facility] - instead of going to the ER. Why use the [facility] instead of the ER? Better Care: We know you better. We know your medical history. This saves you time and hassle. Affordable: We take most insurance plans. No one is turned away because they cannot pay. Many Locations: We have several health centers in your area. Easy Service: We welcome walk-in patients, though we recommend making an appointment to shorten your wait time. What can we do for you? We can take care of common illnesses, minor injuries and routine exams. When you need something,makean appointment for: Advise about a health problem Regular physicals, vaccinations and screenings Common illnesses such as colds, flu ear aches, sore throats,migraines,fever ,or rashes Women's health issus such as urinary tract infections of yeast infections Minor injuries such as sprains, broken bones, back pain, minor cuts and case or minor eye injuries Feelings of sadness, anxiety or anger that interfere with your daily life Thoughts about harming yourself or others If you have a question about where you should go for care, you can call your health center 24 hours a day. Not feeling well at night or on the weekend? Visit your Extended Hours center. When your regular health center in closed, our extended-hours centers can help with medical problemsthat are not life-threatening, but could get worse if you wait. Your closest extended-hours center is: [address] Hours: Thursday-Thursday 8:00am-8:00pm Thursday & Thursday 8:00am-6:00pm OR [facility] [address] [place] [id number] Hours: Thursday & 8:00am-8:00pm Thursday, Thursday, Thursday, & Thursday 8:00am-5:00pm Closed Thursday When should you go to the ER? You should use a hospital emergency room for very serious or life-threatening problems. Hospital emergency rooms are not the place to go for common illnesses or minor injuries. If you are experiencing any of the following symptoms, don't wait! Call 911 or get to your nearest hospital emergency room for: Chest pain Sever abdominal pain Coughing or vomiting blood Injuries requiring immediate medical attention such as severs case or deep wounds Sudden blurred vision Difficulty breathing Sudden dizziness, weakness or loss of coordination or balance Numbness in the face, arm or leg Sudden, severe headache (not a migraine) Sudden confusion Drug or alcohol poisoning or overdoes Planning to harm yourself or others Any other condition you believe is life threatening If you have a question about where you should go for care, you can call your health center 24 hours a day. documented in this encounter Progress Notes Mihaela Lewis RN - 07/04/2019 8:30 AM GABE have identified this patient to be Samantha Mckeon Paulo -1965. [id number] vaccine/s administered as per provider Chelita's order. See vaccine imm/inj section. Patient Communication and Education Assessment Learner: Patient Learning Needs reviewed: Immunizations: Yes Barriers: None Teaching Methods: Handout Verbalized Understanding: Communicates/understands Follow up plan: See provider as needed. Signature: MIHAELA LEWIS RN Title: RN Reviewed with pharmacist Linda that Symbicort should be discontinued. She confirms this and reports Dulera is covered by insurance. Cisco Calhoun MD - 2019 8:30 AM EST I have identified this patient to be Samantha Bates, -1965. CC: Samantha Bates is a 54 year old female who had concerns including Emergency Room Visit Follow Up . SUBJECTIVE: Went to Emergency Room due cough and and gurgling going down chest and couldn't stop throwing up phlegm then green and then yellow and then bleeding a little bit and then went straight into vomiting No fevers No body aches Has been having hot flashes States she got scik because went outside with wet hair Was given prednisone and antibiotics No chest pain, shortness of breath. (+) sore throat from coughing. Otherwise Review of Systems as above. 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 Declines medication for hot flashes today OBJECTIVE: BP 135/82 | Pulse 67 | Temp 98 F (36.7 C) (Oral) | Ht 5' 5" (1.651 m ) | Wt 226 lb (102.5kg) | SpO2 96% | BMI 37.61 kg/m General: alert, well appearing, in no apparent distress Eyes: pupils equally round and reactive to light and accomodation, extraocular motions intact Ears: normal tympanic membranes bilaterally Mouth: moist mucous membranes, normal oropharynx, no lesions noted Neck: no cervical lymphadenopathy Cardiovascular: regular rate and rhythm, no appreciable murmur/rub/gallop Chest: Clear to auscultation bilaterally, no crackles/wheezes/rhonchi/rub Results for orders placed or performed in visit on 03/28/19 RAPID HIV 1&2 3RD GEN INSTI Result Value Ref Range HIV I & II - INVALID HIV I & II - NON REACTIVE Non Reactive HIV I & II - PRELIMINARY REACTIVE HIV KIT LOT # [id number] HIV KIT EXP DATE 03/08/2020 CBC WITH DIFFERENTIAL AND PLATELETS Result Value Ref Range WHITE BLOOD CELL (WBC) COUNT 7.79 4.00 - 10.10 x10(3)/uL RED BLOOD CELL (RBC) COUNT 4.32 3.58 - 5.19 x10(6)/uL HEMOGLOBIN 12.8 11.0 - 15.5 g/dL HEMATOCRIT 39.0 31.5 - 44.8 % MCV 90.3 78.0 - 98.0 fL MCH 29.6 25.2 - 32.6 pg MCHC 32.8 31.0 - 34.7 g/dL RDW 13.5 12.0 - 15.5 % POLYS 47.3 37.1 - 78.1 % POLYS, ABS. COUNT 3.68 1.30 - 7.00 x10(3)/uL LYMPHOCYTES 43.9 13.7 - 50.9 % LYMPHS, ABS. COUNT 3.42 (H) 0.80 - 3.00 x10(3)/uL MONOCYTES 4.6 3.0 - 11.9 % MONOS, ABS. COUNT 0.36 0.00 - 1.00 x10(3)/uL EOSINOPHILS 3.6 0.0 - 5.0 % EOS, ABS. COUNT 0.28 0.00 - 0.40 x10(3)/uL BASOPHILS 0.5 0.0 - 1.0 % BASOS, ABS. COUNT 0.04 0.00 - 0.10 x10(3)/uL IMMATURE GRANULOCYTES 0.1 0.0 - 1.0 % PLATELETS 406 140 - 425 x10(3)/uL MPV 9.6 8.6 - 12.1 fL LIPID PANEL Result Value Ref Range CHOLESTEROL 218 (H) <200 mg/dL HDL CHOLESTEROL 48 (L) >50 mg/dL TRIGLYCERIDES 248 (H) <150 mg/dL HDL % OF CHOLESTEROL 22 >14 % CHOL/HDL RATIO 4.5 <5.8 HDL/LDL RATIO 2.50 <3.56 LDL CHOLESTEROL 120 (H) <100 mg/dL VLDL Cholesterol Malik 50 (H) 7 - 32 mg/dL NON HDL CHOL. (LDL+VLDL) 170 (H) <130 mg/dL RPR Result Value Ref Range RPR Non-Reactive Non-Reactive [titer] HEP B SURFACE AB QUANT Result Value Ref Range HBSAB, QUANT. >1000.0 Immune=>9.9 mIU/mL HEPATITIS C ANTIBODY W/ REFLEX RT PCR Result Value Ref Range HEP C AB. S/CO RATIO <0.02 <0.80 HEPATITIS C ANTIBODY Non-Reactive Non-Reactive COMP METABOLIC PANEL Result Value Ref Range PROTEIN, TOTAL, SERUM 7.2 5.9 - 8.4 g/dL ALBUMIN 4.5 3.5 - 5.2 g/dL GLOBULIN, TOTAL 2.7 1.7 - 3.7 g/dL A/G RATIO 1.7 1.1 - 2.9 Ratio SODIUM 142 135 - 147 mmol/L POTASSIUM 4.4 3.5 - 5.5 mmol/L CHLORIDE 101 96 - 108 mmol/L CARBON DIOXIDE 28 22 - 29 mmol/L UREA NITROGEN (BUN) 12 6 - 20 mg/dL CREATININE 0.78 0.49 - 1.02 mg/dL EGFR 87 >or=60 mL/min EGFR 101 >or=60 mL/min BUN/CREATININE RATIO 15.4 10.0 - 28.0 Ratio CALCIUM 9.5 8.6 - 10.4 mg/dL BILIRUBIN, TOTAL 0.6 <1.2 mg/dL ALKALINE PHOSPHATASE 122 40 - 156 U/L AST (SGOT) 17 <32 U/L ALT (SGPT) 19 <33 U/L GLUCOSE 109 (H) 70 - 99 mg/dL HGA1C (HGB GLYCOSYLATED) Result Value Ref Range HEMOGLOBIN A1C 6.0 (H) <5.7 % THINPREP AND HPV W GC/CHLAMYDIA Result Value Ref Range MARKETING SENIOR RECRUITER REPORT NILM HPV HR NON 16/18 Not Detected HPV GENOTYPE, 18 Not Detected HPV GENOTYPE, 16 Not Detected CHLAMYDIA TRACHOMATIS Not Detected NEISSERIA GONORRHOEAE NUCLEIC* Not Detected HEP B SURFACE AG (HBSAG) Result Value Ref Range HEPATITIS B SURFACE ANTIGEN Non-Reactive Non-Reactive ASSESSMENT/PLAN: 1. Influenza vaccination declined - VIS already given 2. Mild persistent asthma without complication Switch to dulera per patient this is what she is taking Currently finishing treatment for asthma exacberation from Emergency Room Lungs clear to auscultation today - Mometasone Furo-Formoterol Fum (DULERA) 200-5 MCG/ACT Inhalation Aerosol; Inhale TWO puffs (400 mcg total) 2 (two) times a day As prescribed elsewhere Dispense: 3 Inhaler; Refill: 1 - Montelukast Sodium 10 MG Oral Tab; Take ONE tablet (10 mg total) by mouth nightly As prescribed elsewhere Dispense: 90 tablet; Refill: 1 - ALBUTEROL SULFATE (PROAIR HFA) 108 (90 Base) MCG/ACT Inhalation Aero Soln; Inhale TWO puffs (216 mcg total) every 4-6 (four-six) hours as needed for cough or shortness of breath As prescribed elsewhere Dispense: 2 Inhaler; Refill: 3 3. Prediabetes Elects to start metformin Encourage lifestyle measures including healthy eating, wellness, and increasing physical activity. - CONSULT TO NUTRITION - metFORMIN HCl 500 MG Oral Tab; Take ONE tablet (500 mg total) by mouth daily Dispense: 90 tablet;Refill: 0 4. Need for prophylactic vaccination against Streptococcus pneumoniae ( pneumococcus) - PPSV23 VACC 2 YRS+ SUBQ/IM; Future 5. Menopausal state Declines medication for hot flashes today Follow up 3 months Return to clinic sooner if symptoms persist or worsen. CISCO MERLOS MD Discussed with patient access to after-hours providers, weekend and evening care , and onsite and affiliated resources as well as appropriate use of emergency room services when needed. Samantha Bates has an open referral for a mammogram. A copy of the referral was provided to patient again today and importance of referral completion was reviewed with patient. Sudha Oliva MA - 07/04/2019 8:30 AM EST I have identified this patient to be NATIVIDAD Bailey -1965. Chief Complaint Patient presents with Emergency Room Visit Follow Up Vitals: 07/04/19 0843 BP: 135/82 Pulse: 67 Temp: 98 F (36.7 C) TempSrc: Oral Weight: 226 lb (102.5 kg) Height: 5' 5" (1.651 m) Allergies Allergen Reactions Fish Swelling, Respiratory Distress and Difficulty Swallowing All type of sea food Latex Rash Shrimp Rash, Swelling, Respiratory Distress and Difficulty Swallowing All type of sea food Lipitor [Atorvastatin] Other Myalgias and muscle stiffness documented in this encounter Plan of Treatment Name Type Priority Associated Diagnoses Order Schedule CONSULT TO NUTRITION Referral Routine Prediabetes Ordered: 07/04/2019 Health Maintenance Due Date Last Done Comments BREAST CANCER SCREENING 2015 COLORECTAL SCREENING FOBT/FIT/ 07/11/2019 Postponed from 2015 FIT-DNA (Requesting previous records) FLU SHOT (#1) 07/11/2019 Postponed from 02/22/2019 (Patient refused) PHQ-2 Depression Screening 03/28/2020 03/28/2019 CERVICAL CANCER-5 YEAR SCREENING 03/28/2024 03/28/2019 AGES 30-65 TDAP/TD ADULT 03/28/2029 03/28/2019 Pneumococcal Vaccine ages 0-64 Completed 07/04/2019 years HEP B Aged Out No longer eligible based on patient's age to complete this topic documented as of this encounter Goals Goal Patient Goal Associated Recent Patient-Stated? Author Type Problems Progress Eat fruit or Nutrition No Chelita, vegetables at [employer], each meal MD Get at least 1 Physical No Chelita, hour of exercise Activity [employer] daily documented as of this encounter Procedures Procedure Name Priority Date/Time Associated Diagnosis Comments PNEUMOVAX VACCINE SQ Routine 07/04/2019 9:44 AM Need for prophylactic IMM CLINIC EST vaccination against Streptococcus pneumoniae (pneumococcus) documented in this encounter Results Not on filedocumented in this encounter Visit Diagnoses Diagnosis Influenza vaccination declined - VIS already given Mild persistent asthma without complication Unspecified asthma Prediabetes Other abnormal glucose Need for prophylactic vaccination against Streptococcus pneumoniae ( pneumococcus) Need for prophylactic vaccination against streptococcus pneumoniae ( pneumococcus) Menopausal state Symptomatic menopausal or female climacteric states Immunization not carried out because of patient refusal Mild persistent asthma, uncomplicated Prediabetes Menopausal and female climacteric states Encounter for immunization documented in this encounter Additional Health Concerns Health Status Noted Date Alive and well 03/28/2019 documented as of this encounter (Work) documented as of this encounter
--- OUTSIDE RECORDS SUMMARY | 2019-08-04 04:22 | XMS REPORT | Summary of Care ---
:1965 Author Organization [facility] Address [address] [facility] [place] [address] Care Team Providers Name Role Phone Adry Puri Primary Care Provider Reason for Visit Reason Comments Physical pap 04/12/19, mammo 10/23/16, colonoscopy 11/07/15 Asthma Jaw Pain Imm/Inj Tdap and Shingrix administered today Encounter Details Date Type Department Care Team Description 07/13/2019 Office Visit [place] [facility] Adry Puri MD Routine general medical examination at a health care facility (Primary Dx); Medicine [facility] Lipid disorder; [address] [place] [address] Screening mammogram, encounter for; [place] [address] Need for vaccination; [phone] Elevated blood sugar Allergies Active Allergy Reactions Severity Noted Date Comments Latex Rash 11/07/2015 Atorvastatin Calcium METAL POURER Reaction 07/13/2019 Stiff Naproxen Rash 09/18/2015 documented as of this encounter (statuses as of 07/13/2019) Medications Medication Sig Dispensed Refills Start Date End Date Status albuterol HFA Take 2 Puffs by 0 Active (VENTOLIN) 108 (90 inhalation EVERY BASE) MCG/ACT FOUR HOURS Inhalation Aero Soln NEEDED (cough). albuterol-ipratropium 3 mg by 0 Active (DUO-NEB) 0.5-2.5 (3) Inhalation-SVN MG/3ML Inhalation route. Solution Mometasone Take 2 Puffs by 1 Inhaler 3 10/31/2015 Active Furo-Formoterol Fum inhalation TWICE 200-5 MCG/ACT DAILY. Inhalation Aerosol Multiple Vitamin (MULTI Take by mouth 0 Active VITAMIN DAILY PO) DAILY. cholecalciferol Take 1,000 Units 0 Active (VITAMIN D) 1000 UNITS by mouth. Oral Tab montelukast (SINGULAIR) Take 10 mg by 0 Active 10 MG Oral Tab mouth DAILY. Omeprazole 20 MG Oral Take 20 mg by 0 Active Tab EC mouth DAILY NEEDED. simvastatin (ZOCOR) 20 Take 20 mg by 0 Active MG Oral Tab mouth DAILY. CANNABIDIOL PO Take by mouth. 0 Active documented as of this encounter (statuses as of 07/13/2019) Active Problems Problem Noted Date Right shoulder pain 11/12/2015 Overview: Rotator cuff Arthralgia of right acromioclavicular joint 11/12/2015 Neck pain 11/12/2015 Allergic rhinitis 09/18/2015 Overview: Dr Fishman Asthma 09/18/2015 documented as of this encounter (statuses as of 07/13/2019) Immunizations Name Administration Dates Next Due Hepatitis B Vaccine 03/22/2002, 08/30/2001, 07/28/2001 Measles/Rubella Vaccine 02/06/1981 Mumps Vaccine 01/25/1981 Polio - Inactivated Vaccine 05/04/1981, 02/06/1981 TDAP Vaccine 07/13/2019 ZOSTER (SHINGRIX) VACCINE 07/13/2019 dT Vaccine 05/04/1981, 02/06/1981 documented as of this encounter Social History Tobacco Use Types Packs/Day Years Used Date Former Smoker Cigarettes 1 15 Quit: 11/06/2001 Smokeless Tobacco: Never Used Alcohol Use Drinks/Week oz/Week Comments No Sex Assigned at Date Recorded Not on file documented as of this encounter Last Filed Vital Signs Vital Sign Reading Time Taken Comments Blood Pressure 130/78 07/13/2019 1:00 PM EST Pulse 84 07/13/2019 1:00 PM EST Temperature 37.5 07/13/2019 1:00 PM C (99.5 EST F) Respiratory Rate - - Oxygen Saturation 96% 07/13/2019 1:00 PM EST Inhaled Oxygen Concentration - - Weight 104.2 kg (229 lb 11.2 oz) 07/13/2019 1:00 PM EST Height 165.1 cm (5' 5") 07/13/2019 1:00 PM EST Body Mass Index 38.22 07/13/2019 1:00 PM EST documented in this encounter Patient Instructions Patient InstructionsAdry Puri MD - 07/13/2019 1:00 PM ESTTo prevent diabetes 1. Diet and exercise - Lower the carbs / lose 5-10 lbs - Avoid prednisone - 2. Medication Weight loss is in the calories Most important technique - WRITE IT DOWN Etools - Free websites loseit Fatsecret Myfitnesspal Sparkpeople fooducate Multiple effective diets- I favor the low carb diet- Cut out bread/ rice/ potatoes/ pasta - -etc. Eat meals with lean protein (meat/ fish/ chicken/ low fat cheese) and salad- Fruit is good but in moderation No fruit juice or sweetened sodas/ drinks- Interval fasting - Dr Darnell Butler - utube - Zaire Talk - documented in this encounter Progress Notes Adry Puri MD - 07/13/2019 1:00 PM EST PATIENT: Samantha Bates DATE: 07/13/2019 Samantha Bates is a 54-y.o. female presents for routine physical exam and Also, she has additional complaints of Had physical in the city - brings blood work / endoscopy report - vaccinations Blood work - Cbc - all ok - CMP Blood sugar 109 / creatinine 0.7 Hep C negative HIV negative - HgA1C 6.0 Upper endoscopy 04/12 - Done since regurgitating food Biopsy for celiac/ Hpylor done - 2. Asthma- Using dulera and rescue inhaler and prn prednisone 3. Hot flashes - Taking CBD Patient Active Problem List Diagnosis ? Allergic rhinitis ? Asthma ? Right shoulder pain ? Arthralgia of right acromioclavicular joint ? Neck pain Exercize yes No RAMIREZ. No cardiopulmonary symptoms as dyspnea, cough. palpitations , or chest pain on exertion. No upper or lower GI complaints as heartburn, abdominal pain, change in bowel habits, blackor bloody stools. No urinary tract symptoms or incontinence. No symptoms as nocturia, discharge No bruising/ bleeding. No neurological complaints as dysphagia, imbalance, vertigo , focal weakness. No insomnia.+ Rested after nights sleep. No depression. Does not stop breathing at night. Current Outpatient Medications Medication Sig ? albuterol HFA (VENTOLIN) 108 (90 BASE) MCG/ACT Inhalation Aero Soln Take 2 Puffs by inhalation EVERY FOUR HOURS NEEDED (cough). ? albuterol-ipratropium (DUO-NEB) 0.5-2.5 (3) MG/3ML Inhalation Solution 3 mg by Inhalation-SVN route. ? CANNABIDIOL PO Take by mouth. ? cholecalciferol (VITAMIN D) 1000 UNITS Oral Tab Take 1,000 Units by mouth. ? Mometasone Furo-Formoterol Fum 200-5 MCG/ACT Inhalation Aerosol Take 2 Puffs by inhalation TWICE DAILY. ? montelukast (SINGULAIR) 10 MG Oral Tab Take 10 mg by mouth DAILY. ? Multiple Vitamin (MULTI VITAMIN DAILY PO) Take by mouth DAILY. ? Omeprazole 20 MG Oral Tab EC Take 20 mg by mouth DAILY NEEDED. ? simvastatin (ZOCOR) 20 MG Oral Tab Take 20 mg by mouth DAILY. No current facility-administered medications for this visit. Social History Socioeconomic History ? Marital status: Spouse name: Not on file ? Number of children: Not on file ? Years of education: Not on file ? Highest education level: Not on file Occupational History ? Not on file Social Needs ? Financial resource strain: Not on file ? Food insecurity Worry: Not on file Inability: Not on file ? Transportation needs Medical: Not on file Non-medical: Not on file Tobacco Use ? Smoking status: Former Smoker Packs/day: 1.00 Years: 15.00 Pack years: 15.00 Types: Cigarettes Last attempt to quit: 11/06/2001 Years since quittin.6 ? Smokeless tobacco: Never Used Substance and Sexual Activity ? Alcohol use: No ? Drug use: No ? Sexual activity: Not on file Lifestyle ? Physical activity Days per week: Not on file Minutes per session: Not on file ? Stress: Not on file Relationships ? Social connections Talks on phone: Not on file Gets together: Not on file Attends uatsdin service: Not on file Active member of club or organization: Not on file Attends meetings of clubs or organizations: Not on file Relationship status: Not on file ? Intimate partner violence Fear of current or ex partner: Not on file Emotionally abused: Not on file Physically abused: Not on file Forced sexual activity: Not on file Other Topics Concern ? Back Care Not Asked ? Bike Helmet Not Asked ? Blood Transfusions Not Asked ? Caffeine Concern Not Asked ? Exercise Not Asked ? Hobby Hazards Not Asked ? International Travel Not Asked ? Service Not Asked ? Occupational Exposure Not Asked ? Seat Belt Not Asked ? Self-Exams Not Asked ? Sleep Concern Not Asked ? Special Diet Not Asked ? Stress Concern Not Asked ? Weight Concern Not Asked Social History Narrative Son 10/08 - Overdose / psychiatric problems/ Early heart disease Family History Problem Relation Age of Onset ? Breast Cancer Sister OBJECTIVE: BP 130/78 | Pulse 84 | Temp 99.5 F (37.5 C) | Ht 5' 5" (1.651 m) | Wt 229 lb 11.2 oz (104.2 kg) | LMP 05/26/2016 (Within Days) | SpO2 96% | BMI 38.22 kg/m Gen well Heent: ears TM and canals normal eyes Perrl; EOMI oroph-wnl Neck- no JVD,thyromegaly, bruit or lymphademopathy No supraclavicular, axillary or inguinal lymphadenopathy Lungs-clear to auscultation CV RRR no Murmur, gallop or clilck Breasts-no masses or diimpling (examined supine and sitting) Abd. nontender; no organomegaly, abnormal pulsations , bowel sounds normoactive Pap [place] - negative HPV not detected Ext-no edema; rash, DP +2 skin- no rashes or suspicious lesions Neuro- intellect intact; CN II.XII intact; U&LE-strength wnl gait nl A/P ICD-9-CM ICD-10-CM 1. Routine general medical examination at a health care facility V70.0 Z00.00 CANCELED: CBC WITH DIFFERENTIAL CANCELED: COMPREHENSIVE METABOLIC PANEL 2. Lipid disorder 272.9 E78.9 LIPID PROFILE 3. Screening mammogram, encounter for V76.12 Z12.31 MAMMO SCREENING TOMOSYNTHESIS BILATERAL 4. Need for vaccination V05.9 Z23 MA TET, DIP & ACEL PERTUSSIS(DX Z23) MA SHINGRIX (ZOSTER) 5. Elevated blood sugar 790.29 R73.9 BASIC METABOLIC PANEL GLYCOHEMOGLOBIN A1C Breast self-exam and bone health recommendations were made Pneumonia shot next visit Chief Complaint Patient presents with ? Physical pap 04/12/19, mammo 10/23/16, colonoscopy 11/07/15 ? Asthma ? Jaw Pain ? Imm/Inj Tdap and Shingrix administered today Mammo-- Ordered for spring Colon- Up to date DT Needs pneumonia shot - next visit PAP Up to date DEXA Ordered Patient Instructions To prevent diabetes 1. Diet and exercise - Lower the carbs / lose 5-10 lbs - Avoid prednisone - 2. Medication Weight loss is in the calories Most important technique - WRITE IT DOWN Etools - Free websites loseit Fatsecret Myfitnesspal Sparkpeople fooducate Multiple effective diets- I favor the low carb diet- Cut out bread/ rice/ potatoes/ pasta - -etc. Eat meals with lean protein (meat/ fish/ chicken/ low fat cheese) and salad- Fruit is good but in moderation No fruit juice or sweetened sodas/ drinks- Interval fasting - Dr Darnell Butler - ursula - Zaire Talk - Author: Adry Puri MD documented in this encounter Plan of Treatment Date Type Specialty Care Team Description 11/08/2019 Ancillary Procedure Radiology 11/08/2019 Office Visit Internal Medicine Adry Puri MD [address] [place] [address] [phone] Name Type Priority Associated Diagnoses Order Schedule LIPID PROFILE Lab Routine Lipid disorder Expected: 07/13/2019 (Approximate), Expires: 01/09/2020 MAMMO SCREENING Imaging Routine Screening mammogram, Expected: TOMOSYNTHESIS BILATERAL encounter for 07/13/2019, Expires: 10/10/2020 BASIC METABOLIC PANEL Lab Routine Elevated blood sugar Expected: 07/13/2019 (Approximate), Expires: 01/09/2020 GLYCOHEMOGLOBIN A1C Lab Routine Elevated blood sugar Expected: 11/10/2019 (Approximate), Expires: 01/09/2020 Health Maintenance Due Date Last Done Comments DTaP/Tdap/Td Vaccines (3 - 05/04/1991 05/04/1981, 02/06/1981 Tdap) ZOSTER IMMUNIZATION SERIES 2015 (1 of 2) MAMMOGRAM (SCREENING) 10/23/2017 10/23/2016, 10/09/2015, 09/18/2014, Additional history exists DIABETES SCREENING 09/08/2018 09/08/2017, 09/04/2016, 12/26/2015 DEPRESSION SCREENING 07/13/2020 07/13/2019 INFLUENZA VACCINE (#1) 2020 Postponed from 01/23/2019 (Patient refused) PNEUMOCOCCAL 0-64 YRS (1 of 07/25/2020 Postponed from 1 - PPSV23) 1971 (Other) PAP SMEAR 04/04/2022 12/25/2015, 12/25/2015 Postponed from 12/24/2018 (Other) LIPID DISORDER SCREENING 07/13/2024 07/13/2019, 09/08/2017, 09/04/2016, Additional history exists Colonoscopy 11/06/2025 11/07/2015 HEPATITIS A IMMUNIZATION Aged Out No longer eligible SERIES based on patient's age to complete this topic HPV IMMUNIZATION SERIES Aged Out No longer eligible based on patient's age to complete this topic MENINGOCOCCAL VACCINE IMM Aged Out No longer eligible based on patient's age to complete this topic documented as of this encounter Results Not on filedocumented in this encounter Visit Diagnoses Diagnosis Routine general medical examination at a health care facility Lipid disorder Unspecified disorder of lipoid metabolism Screening mammogram, encounter for Need for vaccination Need for prophylactic vaccination and inoculation against unspecified single disease Elevated blood sugar Other abnormal glucose documented in this encounter Insurance Payer Benefit Plan / Subscriber ID Effective Dates Phone Address Type Group BCBS NATIONAL BCBS NATIONAL [id number] 2019-Prese Blue nt Cross/Blue Shield MEDICAID [facility] [id number] 2019-Presen Medicaid [place] MEDICAID [id number] (Work) documented as of this encounter
--- NOTE | 2019-08-04 04:39 | ED ---
Allergic Reaction/Systemic - HPI Summary HPI Summary: 54 year old F arriving via private car to [facility] complains of itching, swelling, burning in her left ear, itching and swelling in her eyes, hives and itching across her chest x4 days. She is allergic to fabric softener. Her accidentally washed her clothes with his in fabric softener. Also had shingles vaccination a few days before she developed symptoms. Symptoms aggravated by nothing. Symptoms alleviated by nothing. Medications reviewed. Allergies noted. Home Medications Medication Instructions Recorded Confirmed Type Albuterol 2.5MG/3ML (0.083%)* 2.5 mg INH Q4H PRN #100 neb.yolis 07/31/15 08/04/19 Rx [Ventolin 2.5 MG/3 ML NEB.YOLIS*] Mometasone/Formoter 200/5 MDI* 2 puff INH BID 03/03/16 08/04/19 History [Dulera 200/5 MDI*] Multivitamin [Multivitamins] 1 cap PO DAILY 03/03/16 08/04/19 History Cholecalciferol (Vitamin D3) 1,000 units PO DAILY 08/04/17 08/04/19 History [Vitamin D3] Simvastatin [Zocor] 20 mg PO DAILY 08/04/19 08/04/19 History Triamcinolone 0.5% CREAM(NF) 1 applic TOPICAL BID #1 tube 08/04/19 Rx [Triamcinolone 0.5% CREAM*] hydrOXYzine pamoate [Vistaril] 50 mg PO TID PRN #25 capsule 08/04/19 Rx - History of Current Complaint Chief Complaint: EDAllergicReaction Time Seen by Provider: 08/04/19 04:33 Hx Obtained From: Patient Onset/Duration: Started days ago - 4, Still Present Timing: Constant Severity Currently: None Pain Intensity: 0 Pain Scale Used: 0-10 Numeric Aggravating Factor(s): Nothing Alleviating Factor(s): Nothing - Allergies/Home Medications Allergies/Adverse Reactions: Allergies Allergy/AdvReac Type Severity Reaction Status Date / Time acetaminophen [From Percocet] Allergy Nausea Verified 08/04/19 04:15 naproxen Allergy Rash Verified 08/04/19 04:15 oxycodone [From Percocet] Allergy Nausea Verified 08/04/19 04:15 SEAFOOD Allergy Severe Rash And Uncoded 08/04/19 04:15 Itching TRAMADOL Allergy Severe Altered Uncoded 08/04/19 04:15 Mental Status ENVIRONMENTAL Allergy Intermediate Eyes Uncoded 08/04/19 04:15 Itchy/Swollen/Red/Watery LATEX Allergy Intermediate Rash And Uncoded 08/04/19 04:15 Itching Home Medications: Home Medications Albuterol 2.5MG/3ML (0.083%)* [Ventolin 2.5 MG/3 ML NEB.YOLIS*] 2.5 mg INH Q4H PRN #100 neb.yolis 07/31/15 [Rx Confirmed 08/04/19] Mometasone/Formoter 200/5 MDI* [Dulera 200/5 MDI*] 2 puff INH BID 03/03/16 [ History Confirmed 08/04/19] Multivitamin [Multivitamins] 1 cap PO DAILY 03/03/16 [History Confirmed 08/04/19 ] Cholecalciferol (Vitamin D3) [Vitamin D3] 1,000 units PO DAILY 08/04/17 [ History Confirmed 08/04/19] Simvastatin [Zocor] 20 mg PO DAILY 08/04/19 [History Confirmed 08/04/19] Triamcinolone 0.5% CREAM(NF) [Triamcinolone 0.5% CREAM*] 1 applic TOPICAL BID # 1 tube 08/04/19 [Rx] hydrOXYzine pamoate [Vistaril] 50 mg PO TID PRN #25 capsule 08/04/19 [Rx] PMH/Surg Hx/FS Hx/Imm Hx Endocrine/Hematology History: Denies: Hx Diabetes, Hx Systemic Lupus Erythematosus Cardiovascular History: Denies: Hx Congestive Heart Failure, Hx Hypertension, Hx Pacemaker/ICD, Other Cardiovascular Problems/Disorders Respiratory History: Reports: Hx Asthma - USES INHALER, Hx Sleep Apnea, Other Respiratory Problems/Disorders - HAS ALLERGY SHOTS BY DR BRITO Q WEEK ON MONDAYS GI History: Reports: Hx Gastroesophageal Reflux Disease - R/T FOOD INTAKE, Hx Ulcer - HEALED WELL History: Reports: Hx Kidney Stones - age 14 Denies: Hx Dialysis, Hx Renal Disease Musculoskeletal History: Reports: Other Musculoskeletal History - plantar fasciitis tony legs Denies: Hx Arthritis, Hx Rheumatoid Arthritis Sensory History: Reports: Hx Contacts or Glasses - glasses Denies: Hx Hearing Aid Opthamlomology History: Reports: Hx Contacts or Glasses - glasses Neurological History: Reports: Hx Migraine - rare Denies: Other Neuro Impairments/Disorders Psychiatric History: Denies: Hx Panic Disorder - Cancer History Hx Chemotherapy: No - Surgical History Surgery Procedure, Year, and Place: 08/11/17 - LT WRIST REPAIR W/ INTERNAL SCREW - NO EXTERNAL REID. TUBAL LIGATION 1987. RIGHT shoulder REPAIR 02/2016. Fatty tissue removed x2 around same side back of shoulder, 02/2016 also buttock -back of leg. 2017, right clavicle, cmc Hx Anesthesia Reactions: No - Immunization History Date of Tetanus Vaccine: unknown Date of Influenza Vaccine: has not received Infectious Disease History: No Infectious Disease History: Denies: Traveled Outside the [place] in Last 30 Days - Family History Known Family History: Positive: Cardiac Disease - father, brother, mother - [place], Diabetes - Social History Alcohol Use: None Substance Use Type: Reports: None Hx Tobacco Use: Yes - quit 2002 Smoking Status (MU): Former Smoker Amount Used/How Often: pack a day for 10 yrs Review of Systems Positive: Other Positive: Other - itching, swelling, burning in her left ear Positive: Other - hives and itching across her chest All Other Systems Reviewed And Are Negative: Yes Physical Exam - Summary Physical Exam Summary: Appearance: Well-appearing, Well-nourished, lying in bed comfortable Skin: Warm, dry, no obvious rash; She has several raised areas on the forehead bilaterally consistent with topical contact dermatitis of some sort. There are similar but less pronounced lesions on the posterior vesicular on the left. She has scattered areas of papular areas on the chest. Eyes: sclera anicteric, no conjunctival pallor HENT: mucous membranes moist Neck: deferred Respiratory: No signs of respiratory distress Cardiovascular: Appears well perfused, pulses are nml Abdomen: deferred Musculoskeletal: Moving all 4 extremities without obvious discomfort Neurological: Awake and alert, mentation is normal, speech is fluent and appropriate Psychiatric: affect is normal, does not appear anxious or depressed Triage Information Reviewed: Yes Vital Signs On Initial Exam: Initial Vitals Temp Pulse Resp BP Pulse Ox 97.8 F 77 16 153/100 94 08/04/19 04:10 08/04/19 04:10 08/04/19 04:10 08/04/19 04:10 08/04/19 04:10 Vital Signs Reviewed: Yes Procedures - Sedation Patient Received Moderate/Deep Sedation with Procedure: No Diagnostics - Vital Signs Vital Signs Temp Pulse Resp BP Pulse Ox 08/04/19 04:10 97.8 F 77 16 153/100 94 - Laboratory Lab Statement: Any lab studies that have been ordered have been reviewed, and results considered in the medical decision making process. Allergic Reaction Course/Dx - Course Course Of Treatment: 54 y/o F c/o itching, swelling, burning in her left ear, itching and swelling in her eyes, hives and itching across her chest x4 days. She has rashes consistent with topical contact dermatitis of some sort. In the ED course, the patient was given Atarax. Patient will be discharged home with prescription for Vistaril and triamcinolone and follow up from her primary care provider. Patient was instructed to return to Emergency Department for new or worsening symptoms. Patient understands and is agreeable to this plan. - Diagnoses Provider Diagnoses: Rash Discharge ED - Sign-Out/Discharge Documenting (check all that apply): Patient Departure - Discharge Plan Condition: Good Disposition: HOME Prescriptions: hydrOXYzine pamoate [Vistaril] 50 mg PO TID PRN #25 capsule PRN Reason: Itching Triamcinolone 0.5% CREAM(NF) [Triamcinolone 0.5% CREAM*] 1 applic TOPICAL BID # 1 tube Patient Education Materials: Contact Dermatitis (ED) Referrals: Saul Oswald MD [Medical Doctor] - - Billing Disposition and Condition Condition: GOOD Disposition: Home - Attestation Statements Document Initiated by Deshawn: Yes Documenting Scribe: Darlene Melvin Provider For Whom Deshawn is Documenting (Include Credential): Darnell Bond MD Scribe Attestation: Darlene Connor, scribed for Darnell Bond MD on 08/08/19 at 2000. Scribe Documentation Reviewed: Yes Provider Attestation: The documentation as recorded by the Darlene hui accurately reflects the service I personally performed and the decisions made by , Darnell Bond MD Status of Scribe Document: Viewed
[2019-08-04] MEDS ORDERED: hydrOXYzine HCL TAB* 50 MG PO ONE (04:40)
== END 2019-08-04 04:47 | disposition home or self-care (01) ==
LOC: ED 04:08
DX: R21 Rash and other nonspecific skin eruption (principal); K21.9 Gastro-esophageal reflux disease without esophagitis; J45.909 Unspecified asthma, uncomplicated; L50.9 Urticaria, unspecified; Z87.891 Personal history of nicotine dependence; Z79.899 Other long term (current) drug therapy
CPT/HCPCS: 99282; A9270-GY